=== PATIENT | female | born 1935 | race Caucasian/White ===

== ENCOUNTER 2019-07-18 20:35 | Inpatient (IN) | payer MEDICARE ==
[~2019-07-18] VITALS: Ht 162.6 cm; Wt 55.5 kg
[2019-07-18 22:36] VITALS: BP 158/92
[2019-07-18] MEDS ORDERED: NS 1,000 ML IV SCH (23:18)
--- NOTE | 2019-07-18 23:33 | HPEPDOC ---
[facility] Medical History & Physical Date of Admission Jul 18, 2019 Date of Service: Jul 18, 2019 Attending Physician: RIKKI OATES MD History and Physical CHIEF COMPLAINT: Fall, left upper extremity paralysis HISTORY OF PRESENT ILLNESS: Patient is an 83-year-old female who presents to [facility] as a direct transfer from [facility]. Patient was brought to the hospital after falling at home approximately at 2 AM on 07/18/2019. Patient was apparently found about 4 hours later by family members who brought her to the emergency department. In the emergency department, patient was found to have rhabdomyolysis and possible CVA as the patient had left upper extremity paralysis as well as difficulty with speech. Patient recently had an MRI of her brain per formed by her neurologist, Dr. Aguillon which showed micro-bleeds in her brain. Patient has a history of atrial fibrillation which she was anticoagulated with warfarin however, after the MRI, warfarin was stopped. Patient is unclear on her history and is very tired while trying to ask questions however, she does not complain of any pain in her chest or abdomen. Patient denied any difficulty breathing. Patient's only complaint was left arm pain. Patient fell on the concrete floor and landed on her left arm. REVIEW OF SYSTEMS: General: Patient denies fevers HEENT: Patient denies headaches Cardiovascular: Patient denies chest pain Respiratory: Patient denies shortness of breath, cough GI: Patient denies abdominal pain, nausea, vomiting, diarrhea : Patient denies pain or difficulty with urination Neurological: Patient denies numbness or tingling in extremities Extremities: Patient endorses pain in her left upper extremity PAST MEDICAL HISTORY: 1. Congestive heart failure. 2. Hypertension. 3. Atrial fibrillation 4. Chronic migraine 5. Mild dementia 6. Gilbert's disease 7. Chronic back pain 8. History of left bundle branch block PAST SURGICAL HISTORY: Difficult to obtain but patient may have had appendectomy in the past. SOCIAL HISTORY: Patient denies smoking or alcohol use. According to the records, patient lives alone. FAMILY HISTORY: Difficult to obtain however, patient denies any relevant family history ALLERGIES: Please see below. HOME MEDICATIONS: Please see below. PHYSICAL EXAMINATION: VITAL SIGNS: Temperature 97.3, pulse 104, respiratory rate 18, blood pressure 119/82, pulse oximetry 93% on room air. General: Patient was sleeping when I walked in however, upon talking to her she will wake up and would minimally answer questions. She was able to tell me her full name and she was at the hospital. She was able to tolerate the year as well. Throughout the examination, patient would answer yes or no questions and very minimally expand upon answers. Patient does not appear to be in any acute distress. HEENT: Normocephalic, atraumatic, moist mucous membranes, posterior pharynx was nonerythematous, tympanic membranes are pearly-curtis without erythema. Neck: No lymphadenopathy, thyromegaly, or carotid bruits. Cardiac: Irregularly irregular rhythm with a normal rate, no murmurs, normal S1, normal S2 Pulm: Clear to auscultation bilaterally. No wheezes, rhonchi, rales Abd: Nondistended, nontender to palpation, normal bowel sounds Ext: Patient had redness and swelling over her left shoulder, left elbow, and left wrist. Patient also had a small skin tear over the left lobe. Neuro: Patient was guarding her left upper extremity however, she was able to very gingerly move it. When I asked her to squeeze my fingers, she did not squeeze with her hand. Patient did not appear to have any facial droop. Patient's speech sounded garbled on examination. Skin: Skin of the arms, lower legs, abdomen, back, head and neck were examined did not show any evidence of rash or lesions. LABORATORY DATA: See below. IMAGING: A chest x-ray was performed at the hospital she was transferred from and was reported to be negative. MRI of the brain, carotid ultrasound, and x- rays of the left upper extremity are pending. MICROBIOLOGY: Please see below. ASSESSMENT: Patient is an 83-year-old female who presented to the hospital with confusion and possible left upper extremity paralysis with garbled speech after a fall. Patient was transferred to [facility] for neurological care. PLAN: 1. Possible cerebrovascular accident. Patient had an MRI in the past which showed micro-bleeds which is why her warfarin was stopped. Patient is currently in atrial fibrillation. Patient seen to be able to move her left upper extremity however, it seems to be painful for her as this which she fell on when she fell at home. MRI of the brain has been ordered. Neurology will be consulted. Patient is currently nothing by mouth pending swallow evaluation. 2. Rhabdomyolysis. Patient was found down and an elevated creatinine kinase. Patient will be started on IV fluids and we'll continue to monitor. 3. Fall with injury to the left upper extremity. Patient has a skin tear over the left elbow and redness and swelling over the left shoulder. X-rays have been ordered and are pending. 4. Atrial fibrillation. Patient is currently not anticoagulated secondary to micro-bleeds are found on MRI performed in April. We will monitor the patient's heart rate with telemetry. 5. DVT prophylaxis: Teds and sequentials. 6. CODE STATUS: Full code Disposition. Patient will be admitted to the progressive care unit on telemetry for further monitoring. Neurology will be consulted and we expect a greater than 2 midnights today. Home Medications Scheduled Carvedilol (Carvedilol) 6.25 Mg Tablet, 6.25 MG PO BID Cyanocobalamin (Vitamin B-12) (B-12) 500 Mcg Tablet, 500 MCG PO DAILY Digoxin (Digoxin) 125 Mcg Tablet, 125 MCG PO 5XW WEDNESDAY, WEDNESDAY, WEDNESDAY, WEDNESDAY AND WEDNESDAY Duloxetine Hcl (Duloxetine HCl) 20 Mg Capsule.dr, 20 MG PO DAILY Furosemide (Furosemide) 20 Mg Tablet, 20 MG PO Q2D Losartan Potassium (Losartan Potassium) 50 Mg Tablet, 50 MG PO BID Multivitamins (Thera M Plus Tablet) 1 Each Tablet, 1 TAB PO DAILY Potassium Chloride (Potassium Chloride) 10 Meq Tab.er.prt, 10 MEQ PO DAILY Psyllium Husk (Metamucil) 0.52 Gm Capsule, 0.52 GM PO DAILY Topiramate (Topiramate) 50 Mg Tablet, 50 MG PO BID Miscellaneous Medications [Med Rec Comment] OBTAINED MED LIST FROM [facility] AND [facility] Allergies Coded Allergies: No Known Allergies (Verified Allergy, Unknown, 07/19/19) A-FIB/CHADSVASC A-FIB History Current/History of A-Fib/PAF?: Yes Current PO Anticoag Therapy: No Treatment Reason Anticoagulant not given: Other Other reason anticoagulant not: micro-bleeds found on MRI in April 2019 with frequent falls. GME ATTESTATION GME ATTESTATION My faculty preceptor for this patient encounter was physically present during the encounter and was fully available. All aspects of the patient interview, examination, medical decision making process, and medical care plan development were reviewed and approved by the faculty preceptor. The faculty preceptor is aware and concurs with the plan as stated in the body of this note and will attest to such by his/her cosignature. ATTENDING NOTE Time of service 11:30 PM is an 83-year-old female the a PMH of CHF, atrial fibrillation, HTN, migraines, dementia, and LBBB who is admitted for evaluation of left upper extremity weakness, possibly due to CVA and rhabdomyolysis after a fall. - telemetry, PT/OT/SPL, f/u on MRI, Carotid US, lipids, A1C and with Neuro Rest per Dr. Lara's note. I reviewed and edited the note and agree with the findings as documented Late entry Blood work July 18: WBC 6.3, hemoglobin 11.8, platelets 159, sodium 147, potassium 3.8, chloride 115, bicarbonate 22, BUN 20, creatinine 1.19, glucose 87, CPK 2064. SHIELA LARA DO Jul 18, 2019 23:33 RIKKI OATES MD Jul 19, 2019 03:48
[2019-07-19] VITALS: BP 131/90
[2019-07-19] MEDS ORDERED: POTA10TA67 PO (00:15)
[2019-07-19] MEDS ORDERED: VITMTA PO (00:15)
[2019-07-19] MEDS ORDERED: LOSA50TA88 PO (00:15)
[2019-07-19] MEDS ORDERED: TOPI50TA9 PO (00:15)
[2019-07-19] MEDS ORDERED: DULO1CAP4 PO (00:15)
[2019-07-19] MEDS ORDERED: META0.522 PO (00:15)
[2019-07-19] MEDS ORDERED: CARV6.25 PO (00:15)
[2019-07-19] MEDS ORDERED: DIGO0.123 PO (00:15)
[2019-07-19] MEDS ORDERED: FURO20TA2 PO (00:15)
[2019-07-19] MEDS ORDERED: TRAM50TA2 PO (00:15)
[2019-07-19 04:00] VITALS: BP 119/82
[2019-07-19 04:18] LABS: HEMATOCRIT 35.5 % (36.0-47.0); HEMOGLOBIN 11.8 g/dl (12.0-15.5); MEAN CORPUSCULAR HEMOGLOBIN 34.6 pg (27.0-33.0); MEAN CORPUSCULAR HGB CONC 33.2 g/dl (32.0-36.5); MEAN CORPUSCULAR VOLUME 104.1 fl (80.0-96.0); PLATELET COUNT, AUTOMATED 159 10^3/uL (150-450); RED BLOOD COUNT 3.41 10^6/uL (4.00-5.40); WHITE BLOOD COUNT 6.3 10^3/uL (4.0-10.0)
[2019-07-19 04:55] LABS: HEMOGLOBIN A1c 5.2 %
[2019-07-19 05:09] LABS: ALBUMIN 3.1 GM/DL (3.2-5.2); BILIRUBIN,TOTAL 3.2 MG/DL (0.2-1.0); CALCIUM LEVEL 8.2 MG/DL (8.8-10.2); CHOLESTEROL RISK RATIO 1.475 (<5); CREATININE FOR GFR 1.19 MG/DL (0.55-1.30); GLOMERULAR FILTRATION RATE 46.1 (>32); MAGNESIUM LEVEL 1.8 MG/DL (1.8-2.4); POTASSIUM SERUM 3.8 MEQ/L (3.5-5.1); THYROID STIMULATING HORMONE 3.53 uIU/ML (0.358-3.740); TOTAL PROTEIN 6.2 GM/DL (6.4-8.2)
[2019-07-19 08:00] VITALS: BP 149/96
[2019-07-19] MEDS ORDERED: DIGOXIN 0.125 MG TAB PO SCH (09:00)
[2019-07-19] MEDS ORDERED: ENOXAPARIN 40 MG/0.4 ML SYRINGE (J1650) SC SCH (09:00)
--- NOTE | 2019-07-19 09:18 | REP ---
Duplex carotid sonography: History: Possible CVA. Findings: Antegrade flow was observed in both vertebral arteries. Right carotid: The right common carotid artery is unremarkable. Relatively slow Doppler velocities are observed bilaterally throughout the carotids. There is mild mixed plaquing in the right carotid bulb and proximal ICA. No significant stenosis is seen. No elevated systolic velocities are observed. Velocity chart right carotid: PSV EDV Right CCA 50.0 cm/s Right ICA 35.0 15.0 Right ECA 41.0 Right ICA/CCA ratio normal 0.7. Impression: Less than 50% category narrowing in the right ICA by Doppler. Left carotid: Left common carotid artery is unremarkable. There is mild mixed plaquing in the bulb and proximal ICA. Color flow and spectral Doppler interrogation show no evidence of significant stenosis. Velocity chart left carotid: PSV EDV Left CCA 70.0 cm/s Left ICA 34.0 10.0 Left ECA 32.0 Left ICA/CCA ratio normal 0.5. Impression: Less than 50% category narrowing in the left ICA. Electronically Signed by Jorge Elizondo MD 07/19/2019 02:02 P
--- NOTE | 2019-07-19 10:03 | REP ---
LEFT SHOULDER: Three views of the left shoulder are performed. There appears to be an old healed fracture of the proximal humerus in the region of the head and neck. No definite acute fracture is seen. There is no dislocation. Electronically Signed by Emerson Castillo MD 07/19/2019 03:55 P
--- NOTE | 2019-07-19 10:04 | REP ---
LEFT HUMERUS: Two views of the left humerus performed. There is an old healed fracture of the left humerus proximally. No acute fracture or dislocation is seen. No intrinsic osseous pathology is seen. Electronically Signed by Emerson Castillo MD 07/19/2019 03:55 P
--- NOTE | 2019-07-19 10:05 | REP ---
LEFT ELBOW, FOUR VIEWS: Four views of the left elbow are performed. There is no evidence of acute fracture, dislocation, or intrinsic bone disease. Electronically Signed by Emerson Castillo MD 07/19/2019 03:55 P
--- NOTE | 2019-07-19 10:09 | REP ---
LEFT WRIST, TWO VIEWS: Two views of the left wrist are performed. No acute fracture or dislocation is seen. There is metallic internal fixation in the distal radius with an old healed fracture at that location. There also appears to be an old healed fracture of the distal end of the ulna. Moderate joint space narrowing and subchondral sclerosis is noted at the joint between the scaphoid and trapezium as well as between the trapezium and base of first metacarpal. Electronically Signed by Emerson Castillo MD 07/19/2019 03:56 P
[2019-07-19] MEDS ORDERED: B-121TAB3 PO (10:36)
[2019-07-19] MEDS ORDERED: MED REC COMMENT (10:36)
[2019-07-19] MEDS: CYANOCOBALAMIN 500 MCG TAB PO SCH (11:49)
[2019-07-19] MEDS: LOSARTAN 50 MG TAB PO SCH ×2 (11:49→21:25)
[2019-07-19] MEDS: CARVedilol 6.25 MG TAB PO SCH ×2 (11:50→21:26)
[2019-07-19] MEDS: DIGOXIN 0.125 MG TAB PO SCH (11:50)
--- NOTE | 2019-07-19 11:57 | IPN ---
DATE: 07/19/2019 Luisa was transferred from [facility] with suspected stroke. She was found on the floor. She was lying on her left side. Her left side is weak but it is difficult to determine if this is paresis from a neurapraxia or pain from her fall or whether it is a related to a stroke (see below). She has a history of stroke and has had microscopic hemorrhage in the past. She had a swallowing study this morning, then hold her consistency diet be recommended. She has rhabdomyolysis. I do not have her baseline creatinine kinase (CK) from [facility] but it is elevated here. She is not currently on any intravenous (IV) fluids. PHYSICAL EXAMINATION: 149/96, pulse of 117, respiratory rate 20, 99% oxygen saturation on 4 liters. General Appearance: She answers questions and follows command. She is dysarthric and mucous membranes are quite dry. No jugular venous distention (JVD). No carotid bruits. Lungs: Clear. Heart: Regular rate and rhythm. 1/6 systolic ejection murmur. Abdomen: Soft, nontender. No masses. She moves her legs with equal strength. There is no facial droop or weakness. Left upper extremity is weak, but she indicates she has pain in elbow and shoulder when she tries to lift this. Computer Systems Architect strength is equal bilaterally. She has an abrasion over the left shoulder. LABORATORY DATA: White count 6.3, hemoglobin 11.8, and platelets 159. MCV is elevated at 104. Sodium 147, potassium 3.8, BUN 20, creatinine 1.9, glucose 87. Bilirubin 3.9. CK 2064. IMPRESSION: 1. Left-sided weakness. I am not sure if this a neurapraxia, musculoskeletal, or stroke. She has MRI of the brain pending. She is not anticoagulant, antiplatelet or deep venous thrombosis (DVT) prophylaxis until that comes back. Neurology has been consulted. Carotid ultrasound was normal. Echocardiogram is pending. 2. Rhabdomyolysis. Not currently on any IV fluids although 100 mL/h of normal saline was ordered. She is hypernatremic, so will change this to half normal saline with some supplemental potassium. Daily labs have been ordered. 3. Prerenal azotemia. IV fluids have been ordered. 4. Macrocytic anemia. B12, folate, free kappa lambda light chains have been ordered. Thyroid-stimulating hormone (TSH) was normal. We will get a free T4 as well. 5. Atrial fibrillation. Rate is elevated. She is not currently on any of her chronotropic medications. I think these were held until she had her swallowing study. We will restart these with her carvedilol 6.25 mg twice a day, digoxin 0.125 mg five times a week. She is on an anticoagulant as an outpatient due to history of macroscopic hemorrhage from stroke. 6. Hypertensive heart disease. Restarting her carvedilol. Restart losartan. 7. She is Topamax as an outpatient. I am not sure what the indication is. We do not have those records, but we will continue this. I met with the family, and we discussed the case at length and all questions were answered.
[2019-07-19 12:00] VITALS: BP 128/60
[2019-07-19] MEDS: DULoxetine 20 MG CAP (CYMBALTA) PO SCH (12:25)
[2019-07-19] MEDS: TOPIRAMATE (TopAMAX) 25 MG TAB PO SCH ×2 (12:25→21:26)
[2019-07-19] MEDS: KCL 20MEQ IN 0.45NS 1000ML 1,000 ML IV SCH ×2 (12:27→21:45)
[2019-07-19 16:00] VITALS: BP 142/100
[2019-07-19 20:00] VITALS: BP 136/92
--- NOTE | 2019-07-19 21:36 | ECHO ---
DATE OF PROCEDURE: 07/19/2019 REFERRING PHYSICIAN: Mk Olsen MD INDICATION: Acute stroke. HEIGHT: 64 inches WEIGHT: 47.4 kg 2D MEASUREMENTS: Aortic root: 3.7 cm Aortic annulus: 2.3 cm Left atrium: 6.1 cm Left atrial volume index: 114 Ventricular septum: 1.23 cm Posterior wall: 1.20 cm Left ventricle diastole: 4.1 cm Inferior vena cava: 1.5 cm (more than 50% respiratory variation). DOPPLER MEASUREMENTS: Mild aortic regurgitation. No aortic stenosis. Aortic valve velocity: 103 cm/s LVOT velocity: 63.2 cm/s Moderate mitral regurgitation. No mitral stenosis. Mitral E velocity: (CW 121 cm/s) Mean aortic valve gradient: 2 mmHg Moderate tricuspid regurgitation. Estimated right ventricle systolic pressure: 42 mmHg assuming a right atrial pressure of 10 mmHg. Mild pulmonic regurgitation. DESCRIPTION: Rhythm was atrial fibrillation with controlled ventricular response. Image quality was fair. No pericardial effusion. This is a 2D, M-mode, color flow Doppler and pulse wave Doppler examination that included mitral annular tissue Doppler. CONCLUSIONS: 1. Borderline concentric left ventricle hypertrophy. Normal regional left ventricle (LV) wall motion and wall thickening. Normal LV systolic function. Left ventricular ejection fraction (LVEF) 60% by visual estimate. 2. Severe left atrial dilatation. 3. Severe mitral annular calcification. Moderate mitral regurgitation. No mitral stenosis. 4. Moderate aortic valve sclerosis of a three-cuspid aortic valve. Mild aortic regurgitation. No aortic stenosis. 5. Suggestive of moderate elevation of estimated right ventricle systolic pressure. Normal right ventricle size and systolic function. At least mild right atrial dilatation by visual estimate. Structurally normal appearing tricuspid leaflets with moderate tricuspid regurgitation.
[2019-07-20] VITALS: BP 139/86
[2019-07-20] MEDS: KCL 20MEQ IN 0.45NS 1000ML 1,000 ML IV SCH ×4 (00:10→22:30)
[2019-07-20 04:00] VITALS: BP 141/101
--- NOTE | 2019-07-20 07:57 | CR ---
DATE OF CONSULTATION: 07/19/2019 REFERRING PHYSICIAN: Dr. Brenda Burroughs REASON FOR CONSULTATION: Fall, left-sided weakness, and gaze deviation. HISTORY OF PRESENT ILLNESS: Luisa Orr is a 83-year-old woman who was transferred from [facility] on July 18, 2019. I was contacted by our answering service in the evening and when I called [facility] nobody picked up on both extensions. Nursing supervisor paint roller covers from [facility] called me a few minutes later and said that Dr. Castillo from emergency department had spoken with a physician from [facility] and will be wanted to transfer Luisa Orr to [facility] due to possible stroke. According to nursing supervisor paint roller covers the patient was found down after 24 hours. She had rhabdomyolysis and mild renal failure with creatinine around 1.3. The patient used to be on Coumadin for atrial fibrillation but it was stopped due to her frequent falls, risk of bleeding and the patient was also found to have amyloid angiopathy with micro bleeds in her brain in April 2019. The patient herself seems to have dysarthria currently and is unable to provide any meaningful history. She can follow simple one-step commands. She does not open her eyes. She talks with dysarthria and eyes closed. She appears to have pain in her left upper extremity. She fell on concrete floor and landed on her left arm. PAST MEDICAL HISTORY: Congestive heart failure, hypertension, atrial fibrillation, migraines, dementia, Gilbert's disease, chronic back pain, left bundle branch block. PAST SURGICAL HISTORY: Appendectomy. SOCIAL HISTORY: She denies smoking, alcohol or illicit drugs. FAMILY HISTORY: Noncontributory. REVIEW OF SYSTEMS: All systems were reviewed with the patient and were found to be noncontributory except as mentioned in history of present illness. HOME MEDICATIONS: - carvedilol 6.25 mg by mouth twice a day - digoxin 125 mcg by mouth daily - Cymbalta 20 mg by mouth daily - Lasix 20 mg by mouth every 2 days - losartan 50 mg by mouth twice a day - potassium chloride 10 mEq by mouth daily - Topamax 50 mg by mouth twice a day - tramadol 50 mg by mouth every 5 hours as needed ALLERGIES: None. PHYSICAL EXAMINATION: Temperature 98.5, pulse 67, respiratory 20, blood pressure 142/100, heart irregularly irregular. Lungs: Clear to auscultation. Abdomen: Soft, nontender, nondistended. No pedal edema. No rash. The patient appears to have pain in her left upper arm and elbow. She has tenderness and pain on passive range of motion of left arm. She has bruises on her left arm. The patient is a drowsy and keeps eyes closed. She is able to follow only simple one-step commands. She has dysarthria of speech. She is able to move all four extremities and moans with movement of her left arm. Movement in the left arm seems less than right side. Movement of her left foot and toes appear equal to right side. Detailed motor examination could not be performed. She has withdrawal response to plantar testing of both feet. Gait could not be tested. Sensory examination could not be performed appropriately. DIAGNOSTIC STUDIES: Her MRI scan of brain in April 2019 showed amyloid angiopathy with multiple micro bleeds on GREC sequence of MRI scan of brain. Carotid ultrasound showed less than 50% bilateral internal carotid artery stenosis. ASSESSMENT: 1. Possible ischemic stroke causing fall and left hemiparesis. 2. Mechanical fall with left arm injury and also in differential diagnosis. 3. Amyloid angiopathy. 4. Atrial fibrillation and her Coumadin was stopped due to multiple falls and amyloid angiopathy. 5. Less than 50% bilateral carotid artery stenosis. PLAN: 1. MRI brain and MRA brain. 2. Continue telemetry monitoring. 3. Physical and occupational therapy. 4. Aspirin 81 mg by mouth daily. 5. With amyloid angiopathy and her frequent falls the patient is likely not a candidate for anticoagulation.
[2019-07-20 08:00] VITALS: BP 155/111
[2019-07-20] MEDS: LOSARTAN 50 MG TAB PO SCH ×2 (08:17→20:22)
[2019-07-20] MEDS: CYANOCOBALAMIN 500 MCG TAB PO SCH (08:17)
[2019-07-20] MEDS: DULoxetine 20 MG CAP (CYMBALTA) PO SCH (08:17)
[2019-07-20] MEDS: CARVedilol 6.25 MG TAB PO SCH ×2 (08:18→20:23)
[2019-07-20] MEDS: TOPIRAMATE (TopAMAX) 25 MG TAB PO SCH ×2 (08:20→20:21)
[2019-07-20 10:50] LABS: HEMATOCRIT 37.4 % (36.0-47.0); HEMOGLOBIN 12.1 g/dl (12.0-15.5); MEAN CORPUSCULAR HEMOGLOBIN 34.1 pg (27.0-33.0); MEAN CORPUSCULAR HGB CONC 32.4 g/dl (32.0-36.5); MEAN CORPUSCULAR VOLUME 105.4 fl (80.0-96.0); PLATELET COUNT, AUTOMATED 146 10^3/uL (150-450); RED BLOOD COUNT 3.55 10^6/uL (4.00-5.40); WHITE BLOOD COUNT 6.6 10^3/uL (4.0-10.0)
[2019-07-20] MEDS: amLODIPine 5 MG TAB PO SCH (10:53)
--- NOTE | 2019-07-20 10:56 | IPN ---
DATE: 07/20/2019 Luisa is seen in PCU. MRI has not been done yet, so we are essentially at the same point we were yesterday. It was ordered 24 hours ago and has not been completed. Clinical status is unchanged. PHYSICAL EXAMINATION: 155/111, pulse of 52. General Appearance: She is lying in bed. She is uncomfortable when she moves her left arm. She has an abrasion over the let shoulder and some bruising present. Lungs: Clear. Heart: Regular rate and rhythm. Abdomen: Soft, nontender. No peripheral edema. She has trouble moving her left arm and attributes this to pain. IMAGING: MRI is still pending. Carotid ultrasound showed less than 50% stenosis bilaterally. LABORATORY DATA: Morning labs are pending. IMPRESSION: 1. Mechanical fall with left sided weakness. I am not sure if this related to musculoskeletal pain or stroke. MRI is still pending. Neurology has been consulted. They recommend against anticoagulation due to the amyloid microangiopathy. 2. Rhabdomyolysis. Followup labs are pending. Currently on IV fluids. 3. Prerenal azotemia. Follow up labs are pending. 4. Atrial fibrillation. Rate and blood pressure are both elevated. Some of this elevated blood pressure could be related to the pain that she was experiencing which was witnessed during the exam. Heart rate varies between 52 and 111, so I am hesitant to increase the dose of her carvedilol. Will start amlodipine 5 mg with a dose now for better control of her blood pressure. 5. Left shoulder/elbow contusions. No fracture on x-ray. Local care being provided.
[2019-07-20 11:29] LABS: ALBUMIN 2.9 GM/DL (3.2-5.2); BILIRUBIN,TOTAL 2.1 MG/DL (0.2-1.0); CALCIUM LEVEL 7.7 MG/DL (8.8-10.2); CREATININE FOR GFR 1.19 MG/DL (0.55-1.30); GLOMERULAR FILTRATION RATE 46.1 (>32); POTASSIUM SERUM 4.4 MEQ/L (3.5-5.1); TOTAL PROTEIN 5.7 GM/DL (6.4-8.2)
[2019-07-20 11:45] VITALS: BP 128/98
[2019-07-20 16:55] VITALS: BP 142/92
--- NOTE | 2019-07-20 18:16 | REPVR ---
PROCEDURE INFORMATION: Exam: MR Head Without Contrast Exam date and time: 07/20/2019 5:39 PM Age: 83 years old Clinical indication: Altered mental status/memory loss; Confusion or disorientation; Patient HX: Confusion possible CVA TECHNIQUE: Imaging protocol: MR of the head without contrast. COMPARISON: No relevant prior studies available. FINDINGS: Limitations: The study is moderately limited due to patient motion artifact. Brain: There are multiple areas of restricted diffusion within the right temporal lobe, inferolateral right basal ganglia, anterior right insula, right frontal lobe, right quispe radiata, and right centrum semiovale. Corresponding decreased signal on the ADC map and increased T2 signal is present. The findings are consistent with acute to subacute infarcts. There is no acute intracranial hemorrhage or midline shift. Age-related cerebral and cerebellar substance loss is present. Scattered increased T2 and FLAIR signal within the periventricular and subcortical white matter is present. This is nonspecific but likely related to chronic microangiopathic ischemic change. Ventricles: Mild ex vacuo dilation of the lateral ventricles is noted. Bones/joints: Unremarkable. Soft tissues: Unremarkable. Sinuses: Normal as visualized. No acute sinusitis. Mastoid air cells: Normal as visualized. No mastoid effusion. Orbits: Unremarkable. IMPRESSION: 1. Acute/subacute right cerebral infarcts as discussed above 2. Chronic findings as discussed above. Electronically signed by: Booker Anne On 07/20/2019 18:16:29 PM
[2019-07-20 20:00] VITALS: BP 122/75
[2019-07-20] MEDS: ASPIRIN 81 MG ENTERIC TAB PO SCH (20:21)
[2019-07-21] VITALS: BP 128/87
[2019-07-21 04:00] VITALS: BP 130/72
[2019-07-21 05:51] LABS: HEMATOCRIT 30.8 % (36.0-47.0); MEAN CORPUSCULAR HGB CONC 32.8 g/dl (32.0-36.5); MEAN CORPUSCULAR VOLUME 103.7 fl (80.0-96.0); PLATELET COUNT, AUTOMATED 141 10^3/uL (150-450); RED BLOOD COUNT 2.97 10^6/uL (4.00-5.40); WHITE BLOOD COUNT 5.1 10^3/uL (4.0-10.0)
[2019-07-21 05:56] LABS: HEMOGLOBIN 10.1 g/dl (12.0-15.5)
[2019-07-21 06:33] LABS: BLOOD UREA NITROGEN 18 MG/DL (7-18); CALCIUM LEVEL 6.4 MG/DL (8.8-10.2); CARBON DIOXIDE LEVEL 14 MEQ/L (21-32); CHLORIDE LEVEL 110 MEQ/L (98-107); CPK CREATINE PHOSPHOKINASE 931 U/L (26-192); CREATININE FOR GFR 0.89 MG/DL (0.55-1.30); GLOMERULAR FILTRATION RATE > 60.0 (>32); GLUCOSE, FASTING 79 MG/DL (70-100); POTASSIUM SERUM 7.3 MEQ/L (3.5-5.1); SODIUM LEVEL 131 MEQ/L (136-145)
[2019-07-21 07:27] LABS: CALCIUM LEVEL 7.9 MG/DL (8.8-10.2); CREATININE FOR GFR 1.08 MG/DL (0.55-1.30); GLOMERULAR FILTRATION RATE 51.6 (>32); POTASSIUM SERUM 4.5 MEQ/L (3.5-5.1)
[2019-07-21 08:00] VITALS: BP 165/96
[2019-07-21] MEDS: DULoxetine 20 MG CAP (CYMBALTA) PO SCH (08:34)
[2019-07-21] MEDS: CARVedilol 6.25 MG TAB PO SCH ×2 (08:34→20:51)
[2019-07-21] MEDS: DIGOXIN 0.125 MG TAB PO SCH (08:34)
[2019-07-21] MEDS: TOPIRAMATE (TopAMAX) 25 MG TAB PO SCH ×2 (08:35→20:50)
[2019-07-21] MEDS: CYANOCOBALAMIN 500 MCG TAB PO SCH (08:35)
[2019-07-21] MEDS: amLODIPine 5 MG TAB PO SCH (08:35)
[2019-07-21] MEDS: LOSARTAN 50 MG TAB PO SCH ×2 (08:35→20:51)
[2019-07-21] MEDS ORDERED: SLF 3 ML SYR IV PRN (10:00)
[2019-07-21 11:52] VITALS: BP 138/79
[2019-07-21] MEDS: SLF 3 ML SYR IV SCH ×2 (11:57→20:52)
--- NOTE | 2019-07-21 13:08 | IPN ---
DATE: 07/21/2019 Luisa's MRI scan was finally done and it confirmed that she did have a stroke in the right hemisphere, within the right temporal lobe, inferolateral right basal ganglia, anterior right insula, right frontal lobe, right quispe radiata, right centrum semiovale. She has no acute intracranial hemorrhage. Therefore, her left sided weakness is both neurologic and musculoskeletal -- stroke and arm injury from fall. She is receiving physical therapy (PT), they are trying to get her more out of bed. 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 PHYSICAL EXAMINATION: 165/96, pulse 100, respiratory rate 14, 94% oxygen saturation. GENERAL APPEARANCE: Elderly, frail, lying in bed, holding her left arm to her side. She has a contusion over the left shoulder with some ecchymosis. Pain with range of motion. LUNGS: Clear. HEART: Regular rate and rhythm. ABDOMEN: Soft, nontender. EXTREMITIES: No peripheral edema. NEUROLOGIC: No facial droop or weakness. LABORATORIES: Sodium 137, potassium 4.5, initial potassium was 7.3, suspected lab error as repeat potassium was 4.5, BUN 20, creatinine 1.0, glucose 104. White count 5.1, hemoglobin 10.1, platelets 141. IMPRESSION: 1. Stroke with left sided weakness. Not a candidate for anticoagulation. Continue current treatment. Continue physical therapy (PT). 2. Rhabdomyolysis. CK is falling. We will stop the intravenous fluids. 3. Prerenal azotemia. It is resolved with hydration. 4. Atrial fibrillation. Rate is controlled. Not anticoagulated per neurology. 5. Hypertension. Blood pressure is mildly elevated intermittently. Average blood pressures are within adequate range so we will continue her current regimen. 6. B12 deficiency. Continue B12 500 mcg daily.
--- NOTE | 2019-07-21 15:05 | ECGEPIP ---
[facility] Test Date: 2019-07-21 Pat Name: FRITZ LAINEZ Department: Room: U9588-38 Gender: Female Manual Lathe Operator: MONIKA : 1935 Requested By: SHIELA ANDREWS Order Number: [id number] Reading MD: Adam Chappell Measurements Intervals [place] Rate: 115 P: NE: 0 QRS: 108 QRSD: 144 T: -55 QT: 363 QTc: 502 Interpretive Statements ATRIAL FIBRILLATION WITH RAPID VENTRICULAR RESPONSE Left bundle branch block Prolonged QTc interval Comparison tracing not on file Electronically Signed on 07-21-2019 15:05:03 EST by Adam Chappell
[2019-07-21 15:31] VITALS: BP 120/78
[2019-07-21 20:44] VITALS: BP 137/87
[2019-07-21] MEDS: ASPIRIN 81 MG ENTERIC TAB PO SCH (20:51)
[2019-07-22] MEDS ORDERED: ACETAMINOPHEN TAB 650MG DOSE (2X325MG) PO PRN (00:45)
[2019-07-22 05:04] VITALS: BP 142/80
[2019-07-22] MEDS: SLF 3 ML SYR IV SCH ×3 (05:05→21:05)
[2019-07-22 06:50] LABS: HEMATOCRIT 36.1 % (36.0-47.0); MEAN CORPUSCULAR HEMOGLOBIN 34.2 pg (27.0-33.0); MEAN CORPUSCULAR HGB CONC 33.2 g/dl (32.0-36.5); MEAN CORPUSCULAR VOLUME 102.8 fl (80.0-96.0); PLATELET COUNT, AUTOMATED 163 10^3/uL (150-450); RED BLOOD COUNT 3.51 10^6/uL (4.00-5.40); WHITE BLOOD COUNT 5.1 10^3/uL (4.0-10.0)
[2019-07-22 07:09] LABS: CALCIUM LEVEL 8.1 MG/DL (8.8-10.2); CREATININE FOR GFR 1.05 MG/DL (0.55-1.30); GLOMERULAR FILTRATION RATE 53.3 (>32); POTASSIUM SERUM 4.1 MEQ/L (3.5-5.1)
[2019-07-22] MEDS: TOPIRAMATE (TopAMAX) 25 MG TAB PO SCH ×2 (08:36→21:12)
[2019-07-22] MEDS: DULoxetine 20 MG CAP (CYMBALTA) PO SCH (08:36)
[2019-07-22] MEDS: CARVedilol 6.25 MG TAB PO SCH ×2 (08:36→21:11)
[2019-07-22] MEDS: DIGOXIN 0.125 MG TAB PO SCH (08:36)
[2019-07-22] MEDS: LOSARTAN 50 MG TAB PO SCH ×2 (08:36→21:12)
[2019-07-22] MEDS: CYANOCOBALAMIN 500 MCG TAB PO SCH (08:37)
[2019-07-22] MEDS: amLODIPine 5 MG TAB PO SCH (08:37)
[2019-07-22 21:12] VITALS: BP 126/74
[2019-07-22] MEDS: ASPIRIN 81 MG ENTERIC TAB PO SCH (21:12)
[2019-07-23 06:00] VITALS: BP 162/96
[2019-07-23] MEDS: TOPIRAMATE (TopAMAX) 25 MG TAB PO SCH ×2 (08:41→20:46)
[2019-07-23] MEDS: DULoxetine 20 MG CAP (CYMBALTA) PO SCH (08:41)
[2019-07-23] MEDS: CYANOCOBALAMIN 500 MCG TAB PO SCH (08:41)
[2019-07-23] MEDS: CARVedilol 6.25 MG TAB PO SCH ×2 (08:42→20:46)
[2019-07-23] MEDS ORDERED: ASPI81TAEC PO (08:42)
[2019-07-23] MEDS: LOSARTAN 50 MG TAB PO SCH ×2 (08:42→20:46)
[2019-07-23] MEDS: DIGOXIN 0.125 MG TAB PO SCH (08:42)
[2019-07-23] MEDS ORDERED: AMLO10TA5 PO (08:42)
[2019-07-23] MEDS: amLODIPine 10 MG TAB PO SCH (08:42)
[2019-07-23] MEDS: ASPIRIN 81 MG ENTERIC TAB PO SCH (20:46)
--- NOTE | 2019-07-23 21:33 | IPN ---
DATE: 07/22/2019 Luisa is seen on [address], now apparently going to [facility] on Wednesday. No change in status. She is intermittently very sleepy, but does wake to eat and follows commands. PHYSICAL EXAMINATION: Blood pressure range is from 137/87 to 165/98, average blood pressures are acceptable, heart rate is 76 to 100. She is elderly, frail, lying in bed, not moving her left arm. LUNGS: Clear. HEART: Regular rhythm. ABDOMEN: Soft, nontender. No peripheral edema. IMPRESSION: 1. Stroke, left-sided weakness, confirmed by MRI scan. Continue her recurring antiplatelet therapy. [place] not to be a good candidate for anticoagulation for reasons previously summarized. 2. Rhabdomyolysis. Stop the intravenous (IV) fluids. Problem is now resolved. 3. Prerenal azotemia. This is resolved. 4. Atrial fibrillation. Rate is controlled. 5. Hypertension. Average blood pressures are acceptable. She is longterm facility (SNF) level of care. PLAN: [facility] on 07/24/2019.
--- NOTE | 2019-07-23 21:36 | DSES ---
DATE OF ADMISSION: 07/18/2019 PENDING DATE OF DISCHARGE: FIRST DIAGNOSIS: Stroke, right cerebrum with left upper extremity weakness. SECONDARY DIAGNOSES: 1. Rhabdomyolysis. 2. Prerenal azotemia. 3. Macrocytic anemia. 4. Atrial fibrillation - not a candidate for anticoagulation. 5. Hypertensive heart disease. 6. Amyloid angiopathy that precludes anticoagulation. HISTORY: Patient was transferred from [facility] with left-sided weakness. She was found on the floor, could not move her left side, did not know if it was musculoskeletal or from stroke. Details of the history and physical as per admission. HOSPITAL COURSE: Patient was admitted to a medical bed. There was delay in getting her MRI scan. Ultimately it showed she did have a stroke in the right cerebrum affecting the left upper extremity. She also had rhabdomyolysis from the fall and contusions were on the left shoulder and left elbow that interfered with her moving, as well. X-rays were negative for fracture. She received physical therapy. Family opted for [facility] placement and this is planned for tomorrow. She had an echocardiogram when she was in and it showed severe left atrial dilatation with a left atrium of 41 mm, normal ejection fraction 60%, moderate mitral regurgitation, increased right-sided pressures. DISPOSITION: I anticipate discharge to [facility] tomorrow. Activity is as tolerated. No added salt diet. She will have a primary care provider at [facility]. She is on a pureed diet, so it should be pureed, no added salt. MEDICATIONS ON DISCHARGE: - aspirin 81 mg daily - amlodipine 10 mg daily to help to control her blood pressure better - carvedilol 6.25 mg twice a day - vitamin B12 500 mcg daily - digoxin 0.125 mg Wednesday, Wednesday, Wednesday, Wednesday, Wednesday - duloxetine 20 mg daily - losartan 50 mg twice a day - Topamax 50 mg twice a day No pending labs at the time of this dictation.
[2019-07-24 05:53] VITALS: BP 131/74
[2019-07-24] MEDS: amLODIPine 10 MG TAB PO SCH (08:25)
[2019-07-24 08:26] VITALS: BP 131/74
[2019-07-24] MEDS: DIGOXIN 0.125 MG TAB PO SCH (08:26)
[2019-07-24] MEDS: CARVedilol 6.25 MG TAB PO SCH (08:26)
[2019-07-24] MEDS: LOSARTAN 50 MG TAB PO SCH (08:26)
[2019-07-24] MEDS: DULoxetine 20 MG CAP (CYMBALTA) PO SCH (08:26)
[2019-07-24] MEDS: CYANOCOBALAMIN 500 MCG TAB PO SCH (08:27)
[2019-07-24] MEDS: TOPIRAMATE (TopAMAX) 25 MG TAB PO SCH (11:06)
== END 2019-07-24 12:15 | DRG 65 ==
LOC: M PCU 22:36 → M MS5PR 07-21 11:40
PROVIDERS: ADMIT Internal Medicine; ATTEND Family Medicine
DX: I63.541 Cerebral infarction due to unspecified occlusion or stenosis of right cerebellar artery (principal); M62.82 Rhabdomyolysis; G81.94 Hemiplegia, unspecified affecting left nondominant side; E85.4 Organ-limited amyloidosis; I11.0 Hypertensive heart disease with heart failure; I50.9 Heart failure, unspecified; I48.91 Unspecified atrial fibrillation; G43.709 Chronic migraine without aura, not intractable, without status migrainosus; I68.0 Cerebral amyloid angiopathy; F03.90 Unspecified dementia, unspecified severity, without behavioral disturbance, psychotic disturbance, mood disturbance, and anxiety; E80.4 Gilbert syndrome; D53.9 Nutritional anemia, unspecified; M54.9 Dorsalgia, unspecified; I44.7 Left bundle-branch block, unspecified; Z79.899 Other long term (current) drug therapy; Z90.49 Acquired absence of other specified parts of digestive tract; S40.012A Contusion of left shoulder, initial encounter; W18.09XA Striking against other object with subsequent fall, initial encounter; Y92.009 Unspecified place in unspecified non-institutional (private) residence as the place of occurrence of the external cause

== ENCOUNTER 2019-07-26 08:08 | Observation (INO) | payer MEDICARE ==
[~2019-07-26] VITALS: Ht 160 cm; Wt 45.1 kg
[~2019-07-26 08:08] MED LIST: AMLO10TA5 PO; ASPI81TAEC PO; B-121TAB3 PO; CARV6.25 PO; DIGO0.123 PO; DULO1CAP4 PO; FURO20TA2 PO; LOSA50TA88 PO; MED REC COMMENT; META0.522 PO; POTA10TA67 PO; TOPI50TA9 PO; TRAM50TA2 PO; VITMTA PO
[2019-07-26 08:50] LABS: HEMATOCRIT 42.9 % (36.0-47.0); HEMOGLOBIN 14.5 g/dl (12.0-15.5); MEAN CORPUSCULAR HEMOGLOBIN 34.2 pg (27.0-33.0); MEAN CORPUSCULAR HGB CONC 33.8 g/dl (32.0-36.5); MEAN CORPUSCULAR VOLUME 101.2 fl (80.0-96.0); PLATELET COUNT, AUTOMATED 201 10^3/uL (150-450); RED BLOOD COUNT 4.24 10^6/uL (4.00-5.40); WHITE BLOOD COUNT 5.2 10^3/uL (4.0-10.0)
[2019-07-26] MEDS: DULoxetine 20 MG CAP (CYMBALTA) PO SCH (09:00)
[2019-07-26] MEDS: METAMUCIL (PSYLLIUM) PACKET PO SCH (09:00)
[2019-07-26 09:16] LABS: ALBUMIN 3.5 GM/DL (3.2-5.2); BILIRUBIN,TOTAL 1.1 MG/DL (0.2-1.0); CALCIUM LEVEL 8.9 MG/DL (8.8-10.2); CK-MB VALUE MASS 4.2 NG/ML (<3.6); CREATININE FOR GFR 1.19 MG/DL (0.55-1.30); GLOMERULAR FILTRATION RATE 46.1 (>32); MB/CK RELATIVE INDEX 2.76 (< OR =4); TROPONIN I 0.04 NG/ML (< 0.10)
--- NOTE | 2019-07-26 09:28 | REP ---
CT study of the cervical spine without contrast: History: Injury in a fall. Technique: Helical scanning is acquired and overlapping 2 mm high resolution axial images were generated and reviewed at bone and soft tissue window settings. Coronal and sagittal multiplanar re-formations images are generated. CT findings: There is no evidence of cervical spine element fracture. No skull base fracture is seen. Cervical vertebral body heights are preserved. Alignment is normal. Facet joints are normally aligned bilaterally at each cervical level on multiplanar re-formations images. There is no evidence of intraspinal or paraspinal hematoma. No extra vertebral abnormality is seen. There are degenerative disc and osteoarthritic facet changes in the cervical spine. There is a dextroconvex scoliotic curvature in the cervical spine. There is some vascular calcification. Impression: Degenerative spondylosis changes and dextroconvex curvature. Otherwise negative CT study of the cervical spine without contrast. No fracture seen. Electronically Signed by Jorge Elizondo MD 07/26/2019 09:19 A
--- NOTE | 2019-07-26 09:44 | REP ---
CT brain without contrast: History: Injury in a fall. Comparison MRI study of the brain is from July 20, 2019. The recent MRI study demonstrate an acute/subacute right cerebral infarct pattern. Findings: Preliminary digital tractor operator laser leveling radiograph is unremarkable. The patient is edentulous. Bone window settings demonstrate vascular calcification in the distal vertebral and distal carotid arteries. Visualized paranasal sinuses are clear. No skull fracture is seen. No scalp hematoma is appreciated. On soft tissue window settings, there is encephalomalacia and some swelling in the right inferior frontal lobe. Similar encephalomalacia is seen and the inferior temporal lobe on the right and the posteromedial temporal lobe on the right matching the distribution of the restricted diffusion on recent MRI study July 20, 2019. No new infarction pattern is seen. There is no evidence of intracranial hemorrhage. There is generalized volume loss as before. No extra-axial fluid collection seen. No mass or midline shift is observed. Impression: Recent infarct pattern in the right inferior frontal lobe, the right temporal lobe. This matches a restricted diffusion pattern seen on July 20, 2019 MRI study. There is generalized atrophy, small vessel atherosclerotic change and vascular calcification. There is no evidence of intracranial hemorrhage. No skull fracture or intracranial injury seen. Electronically Signed by Jorge Elizondo MD 07/26/2019 04:45 P
--- NOTE | 2019-07-26 09:47 | REP ---
Lumbar spine CT study without contrast: History: Low back pain. No comparison lumbar spine CT. No comparison lumbar spine imaging. Technique: Helical scanning is acquired. 4 mm axial images are reformatted. Coronal and sagittal MPR images are generated and reviewed. CT findings: There is diffuse osteopenia. There are surgical clips in right upper quadrant of the abdomen. Vascular calcification is noted. No aortic aneurysm is seen. There is a small quantity of right pleural fluid. There is mild osteoporotic wedge compression deformity at the L1 vertebral body which appears old. No cortical step-off is seen. There is discogenic spurring anteriorly at T12-L1. L2, L3, and L4 are preserved in height. No fracture or collapse is seen at these levels. At L5, there is osteoporotic collapse of the superior endplate with some reactive sclerosis and a Schmorl's node. Again these changes appear old radiographically. No cortical step-off is seen. No posterior element fracture is appreciated at any level. Impression: Old appearing wedge compression deformity at L1 and at the L5. No definite acute finding. Diffuse osteoporosis. Vascular calcification. Small amount of right pleural fluid. Electronically Signed by Jorge Elizondo MD 07/26/2019 04:45 P
--- NOTE | 2019-07-26 10:05 | REP ---
CT of the chest without IV contrast for trauma, rib pain: There are no comparison studies. There is no pneumothorax. There is a small right pleural fluid collection compatible with hemothorax. There is a small focal density inferiorly in the right middle lobe compatible with pulmonary contusion. No rib fractures are identified. No pleural thickening. There are age indeterminate grade 1 compression deformities of the approximate T11 vertebral body and the L1 vertebral body. No mediastinal hematoma is identified. The unenhanced thoracic aorta is unremarkable except that the ascending aorta is dilated measuring up to 4.4 cm transversely. Cardiac size is enlarged. There is no pericardial effusion. In the upper abdomen the visualized areas of the liver, pancreas and spleen are unremarkable. The renal upper poles are unremarkable except for a right renal except for renal cysts. There are surgical clips in the gallbladder fossa. Impression: No definite rib fractures are identified. There is a right pleural fluid collection compatible with hemothorax . Small pulmonary contusion inferiorly in the right middle lobe is suspected. There are age indeterminate grade 1 compression fractures of the approximate T11 vertebral body and L1 vertebral body. Cardiac size is enlarged. There is no pericardial effusion. The ascending thoracic aorta is dilated measuring up to 4.4 centimeters. Electronically Signed by Emerson Killian MD 07/26/2019 09:56 A
[2019-07-26] MEDS ORDERED: BISA10SU27 PR (12:14)
[2019-07-26] MEDS ORDERED: ECOT81TA5 PO (12:14)
[2019-07-26] MEDS ORDERED: ACET1TAB55 PO (12:14)
[2019-07-26] MEDS ORDERED: MOM30SS PO (12:14)
[2019-07-26] MEDS ORDERED: FLEEENE12 PR (12:14)
[2019-07-26] MEDS ORDERED: AMLO10TA5 PO (12:14)
[2019-07-26] MEDS ORDERED: META28.32 PO (12:23)
[2019-07-26] MEDS ORDERED: TUBE5INJ ID (12:27)
[2019-07-26] MEDS ORDERED: PNEU0.5I2 IM (12:27)
[2019-07-26] MEDS ORDERED: hydrALAZINE INJ 20 MG/ML VIAL IV PRN (14:00)
[2019-07-26] MEDS ORDERED: FLEET ENEMA PR PRN (14:00)
[2019-07-26] MEDS ORDERED: BISACODYL 10 MG SUPP PR PRN (14:00)
[2019-07-26] MEDS ORDERED: MOM 30ML SUSPENSION UDC PO PRN (14:00)
[2019-07-26] MEDS ORDERED: ACETAMINOPHEN 325 MG TAB PO PRN (14:00)
[2019-07-26 16:00] VITALS: BP 144/88
--- NOTE | 2019-07-26 16:43 | HPE ---
DATE OF ADMISSION: 07/26/2019 TIME: Approximately 1:00 p.m. CHIEF COMPLAINT: Fall at custodial. HISTORY OF PRESENT ILLNESS: Mrs. Orr is an 83-year-old woman who was recently discharged from here 2 days ago following a right cerebral stroke with associated left upper extremity weakness. She has underlying amyloid angiopathy, which precludes her from being anticoagulated for her chronic atrial fibrillation. Following that hospitalization, the patient had been transferred to the local custodial. While there today, the patient suffered a fall and was brought into the emergency room to be evaluated. In the emergency room, she underwent a chest x-ray, as well as CT scan of her chest, which showed that she had a right pulmonary contusion, as well as a small right hemothorax. For these reasons, she was recommended for admission to the hospitalist service for observation to ensure that there is no worsening. The patient is not a reliable historian as she has underlying dementia. ALLERGIES: No known allergies. HOME MEDICATIONS: - Tylenol 650 mg every 4 hours as needed for pain or fever - Norvasc 10 mg daily - baby aspirin daily - Coreg 6.25 mg twice a day - B12 500 mg by mouth daily - digoxin 125 mg by mouth on Wednesday, Wednesday, Wednesday, Wednesday, Wednesday - duloxetine 20 mg daily - losartan 50 mg twice a day - milk of magnesia - multivitamin one capsule daily - potassium chloride 10 mEq by mouth daily - Topamax 50 mg twice a day PAST MEDICAL HISTORY: Recent right cerebral stroke with left upper extremity weakness. She has chronic atrial fibrillation but is not on anticoagulation due to amyloid angiopathy. The patient has a history of hypertension, dementia, Gilbert's disease, chronic back pain, history of chronic left bundle branch block. PAST SURGICAL HISTORY: Her surgical history cannot be obtained at this time. REVIEW OF SYSTEMS: Cannot be obtained at this time. FAMILY HISTORY: Cannot be obtained at this time due to the patient's underlying dementia. REVIEW OF SYSTEMS: Cannot be obtained. PHYSICAL EXAMINATION: The patient's temperature is 96.8, pulse 77, respirations 16, blood pressure 162/94, oxygen saturation 97% on room air. GENERAL: The patient is oriented to herself only. She does not know location, time or why she is here. Her head appears to be atraumatic. Her pupils are equal, round and reactive to light. I could not test for accommodation given her level of cooperation. Tympanic membranes are visualized bilaterally and otherwise clear with no evidence of infection. Oropharynx is without any visible trauma. Oral mucosa is moist. NECK: Supple. No audible carotid bruits. No palpable thyromegaly. LUNGS: Lung sounds are heard without . HEART: S1, S2. She is hypertensive at this time. No audible murmurs, rubs or gallops. Her rhythm shows that she is irregularly irregular. ABDOMEN: Soft, nontender, nondistended. EXTREMITIES: Without any cyanosis, clubbing or edema. NEUROLOGIC: She has left upper extremity weakness, which is residual from her recent stroke. RELEVANT LABORATORIES: White count 5.3, hemoglobin 14.5, hematocrit 42.9, platelet counts are 201. Sodium 130, potassium 4, chloride 109, bicarbonate 22, anion gap 8, BUN is 18, creatinine 1.19, GFR is 46, glucose is 109, AST is 31, ALT is 40, troponin is 0.04, albumin is 2.5. IMAGING STUDIES: Lumbar spinal CT showed old appearing wedge compression deformities at L1 and L5. No evidence of acute fracture. The patient does have diffuse osteoporosis. CT of the head without contrast showed recent infarct pattern in the right inferior frontal lobe and right temporal lobe, this matches a restrictive diffusion pattern seen on 07/20/2019 MRI study. No visible hemorrhages are noted or bone fractures. CT of the chest without intravenous contrast showed small right pleural fluid collection compatible with hemothorax, as well as small focal density inferiorly in the right middle lobe compatible with pulmonary contusion. No rib fractures are identified. No pleural thickening. CT of the cervical spine showed degenerative spondylosis changes and dextroconvex curvature, otherwise negative CT study, no evidence of fracture. IMPRESSION: 1. Status post ground level fall with right lung contusion and possible hemothorax. 2. History of recent stroke. 3. Chronic atrial fibrillation. 4. Amyloid angiopathy. PLAN: The patient will be admitted to observation status. She will be closely monitored for any worsening respiratory status. If none occurs, she can be discharged back to the custodial in the morning. She will be continued on her home medications at this time. She will be a FULL CODE per her most recent admission.
[2019-07-26] MEDS: CYANOCOBALAMIN 500 MCG TAB PO SCH (18:42)
[2019-07-26] MEDS: ASPIRIN 81 MG ENTERIC TAB PO SCH (18:42)
[2019-07-26] MEDS: MULTIVITAMINS/MINERALS THERAP 1 TAB PO SCH (18:42)
[2019-07-26] MEDS: amLODIPine 10 MG TAB PO SCH (18:43)
[2019-07-26] MEDS: POTASSIUM CHLORIDE 10 MEQ SR TABLET PO SCH (18:43)
[2019-07-26 20:00] VITALS: BP 156/70
--- NOTE | 2019-07-26 20:54 | ECGEPIP ---
[facility] - ED Test Date: 2019-07-26 Pat Name: FRITZ LAINEZ Department: Room: - Gender: Female Spinning Room Worker: JT : 1935 Requested By: NAIMA Nguyễn Order Number: [id number] Reading MD: Christina Faith Measurements Intervals [place] Rate: 69 P: [place]: 0 QRS: -19 QRSD: 165 T: 143 QT: 427 QTc: 459 Interpretive Statements ATRIAL FIBRILLATION LEFT BUNDLE BRANCH BLOCK DECREASED RATE 07/21/19 Electronically Signed on 07-26-2019 20:54:36 EDT by Christina Faith
[2019-07-26] MEDS: TOPIRAMATE (TopAMAX) 25 MG TAB PO SCH (21:18)
[2019-07-26] MEDS: CARVedilol 6.25 MG TAB PO SCH (21:19)
[2019-07-26] MEDS: LOSARTAN 50 MG TAB PO SCH (21:19)
[2019-07-26 23:59] VITALS: BP 130/58
[2019-07-27 04:00] VITALS: BP 140/80
[2019-07-27 06:55] LABS: BILIRUBIN,TOTAL 1.8 MG/DL (0.2-1.0); CALCIUM LEVEL 8.8 MG/DL (8.8-10.2); CREATININE FOR GFR 1.03 MG/DL (0.55-1.30); GLOMERULAR FILTRATION RATE 54.5 (>32); POTASSIUM SERUM 3.8 MEQ/L (3.5-5.1)
[2019-07-27 06:56] LABS: ALBUMIN 3.4 GM/DL (3.2-5.2); TOTAL PROTEIN 6.9 GM/DL (6.4-8.2)
[2019-07-27 08:00] VITALS: BP 133/77
--- NOTE | 2019-07-27 08:17 | REP ---
Portable chest x-ray: Single view. History: Followup right-sided pneumothorax. Comparison chest CT study July 26, 2019. Findings: The mandible overlies the lung apices but no pneumothorax is visible on either side. There is blunting of the pleural angles bilaterally suspicious for mild bilateral effusions. Cardiomegaly is again observed. Old post-traumatic changes are noted in the proximal humerus on the left and there is advanced diffuse osteoporosis. There is plate-like atelectasis in the right base. No infiltrate is seen. Electronically Signed by Jorge Elizondo MD 07/27/2019 08:08 A
[2019-07-27] MEDS: ASPIRIN 81 MG ENTERIC TAB PO SCH (09:54)
[2019-07-27] MEDS: POTASSIUM CHLORIDE 10 MEQ SR TABLET PO SCH (09:54)
[2019-07-27] MEDS: LOSARTAN 50 MG TAB PO SCH (09:54)
[2019-07-27 09:55] VITALS: BP 133/77
[2019-07-27] MEDS: TOPIRAMATE (TopAMAX) 25 MG TAB PO SCH (09:55)
[2019-07-27] MEDS: CARVedilol 6.25 MG TAB PO SCH (09:55)
[2019-07-27] MEDS: CYANOCOBALAMIN 500 MCG TAB PO SCH (09:56)
[2019-07-27] MEDS: amLODIPine 10 MG TAB PO SCH (09:56)
[2019-07-27] MEDS: MULTIVITAMINS/MINERALS THERAP 1 TAB PO SCH (09:56)
--- NOTE | 2019-07-27 10:25 | IPNPDOC ---
Subjective Date Seen The patient was seen on 07/27/19. Subjective Chief Complaint/HPI No respiratory issues this am, not complaining of chest pain or sob Objective Physical Examination General Exam: Positive: Alert, No Acute Distress Eye Exam: Positive: EOMI; Negative: Sclera icteric Neck Exam: Positive: Supple Chest Exam: Positive: Clear to auscultation Heart Exam: Positive: Rate Normal Telemetry: Positive: Atrial fibrillation Abdomen Exam: Positive: Normal bowel sounds Extremity Exam: Negative: Clubbing, Cyanosis, Edema Neuro Exam: Positive: Normal Speech Assessment /Plan Assessment # Status post ground level fall with right lung contusion and possible hemothorax - repeat CXR stable - CBC stable - may discharge back to SNF today - resume home medications w/o changes Plan/VTE VTE Prophylaxis Ordered?: Yes VTE Exclusion Mechanical Proph: N/A:VTE Prophy Ordered VTE Exclusion Pharmacological: N/A:VTE Prophy Ordered VS, I&O, 24H, Fishbone Vital Signs/I&O Vital Signs Date Time Temp Pulse Resp B/P (MAP) Pulse Ox O2 Delivery O2 Flow Rate FiO2 07/27/19 09:55 69 133/77 07/27/19 08:00 97.4 16 97 Room Air I&O- Last 24 Hours up to 6 AM 07/27/19 06:00 Intake Total 0 ml Output Total 0 ml Balance 0 ml Laboratory Data 24H LABS Laboratory Tests 2 07/27/19 05:49: Anion Gap 8, Glomerular Filtration Rate 54.5, Calcium Level 8.8, Total Bilirubin 1.8#H, Aspartate Amino Transf (AST/SGOT) 28, Alanine Aminotransferase (ALT/SGPT) 31, Alkaline Phosphatase 86, Total Protein 6.9, Albumin 3.4, Albumin/Globulin Ratio 0.97L CBC/BMP Laboratory Tests 07/27/19 05:49 Microbiology Microbiology 07/26/19 Blood Culture - Preliminary, Resulted No growth after 24 hours . All specim... 07/26/19 Blood Culture - Preliminary, Resulted No growth after 24 hours . All specim... MONET SHAHID MD Jul 27, 2019 10:25
[2019-07-27] MEDS: DULoxetine 20 MG CAP (CYMBALTA) PO SCH (11:17)
[2019-07-27] MEDS: METAMUCIL (PSYLLIUM) PACKET PO SCH (11:17)
--- NOTE | 2019-07-29 18:02 | DSES ---
DATE OF ADMISSION: 07/26/2019 DATE OF DISCHARGE: 07/27/2019 DISCHARGE DIAGNOSIS: Status post ground level fall with right lung contusion and possible hemothorax noted on chest x-ray. PROCEDURES PERFORMED DURING THIS HOSPITALIZATION: None. CONSULTANTS ON THIS CASE: None. DISPOSITION: The patient is discharged back to residential facility. LABORATORIES PENDING AT DISCHARGE: None. DISCHARGE INSTRUCTIONS: The patient is instructed to followup with her primary care provider. CONDITION AT DISCHARGE: Stable. RELEVANT LABORATORIES: White blood cell count 5.2, hemoglobin 14.5, hematocrit 42.9, platelet count 201,000. Sodium 137, potassium 3.8, chloride 100, bicarbonate 24, BUN 16, creatinine 1, glucose 101. IMAGING STUDIES: CT of the cervical spine showed old-appearing wedge compression deformity at L1 and L5. No definitive acute finding. Diffuse osteoporosis and vascular calcifications, small amount of right pleural fluid. CT of the head without contrast showed no acute intracranial events. Infarct reflecting her recent stroke. CT scan of the chest without contrast showed no rib fractures. There is a small right pleural fluid collection compatible with hemothorax, small pulmonary contusion inferiorly in the right middle lobe suspected. There are age indeterminate grade 1 compression fractures of the approximate T11 vertebral body and L1 vertebral body. Cardiac size is enlarged. There is no pericardial effusion. The ascending thoracic aorta is dilated, measuring up to 4.[address] of the cervical spine showed degenerative spondylosis changes with dextroconvex curvature, otherwise negative. CT study of the cervical spine without contrast showed no fracture. Repeat chest x-ray showed no infiltrate, no evidence of pneumothorax and only indicating mild bilateral effusions and atelectasis. No evidence of infiltrate is noted. DISCHARGE MEDICATIONS: - Tylenol 650 mg every 4 hours as needed for pain or fever - Norvasc 10 mg daily - baby aspirin daily - Dulcolax suppository as needed for constipation - Coreg 6.25 mg twice a day - vitamin B12 500 mcg by mouth daily - digoxin 135 mcg by mouth five times a week - duloxetine 20 mg by mouth daily - losartan 50 mg twice a day - milk of magnesia 10 mL daily as needed for constipation - multivitamin one capsule daily - potassium chloride 10 mEq by mouth daily - Metamucil powder 75 grams powder daily - Fleet enema as needed for constipation - Topamax 50 mg twice a day HOSPITAL COURSE: Ms. Luisa Orr is an 83-year-old woman who recently had suffered a stroke and has been discharged to local residential facility for subacute rehabilitation following her stroke. While there, the patient had suffered a fall and she was brought to the emergency room for evaluation. She underwent complete trauma survey and included the images done listed above, which did not show any acute fracture, but there was a question that she could possibly have a hemothorax and a pulmonary contusion. She was admitted to the hospitalist service on observation status and monitored overnight with no worsening dyspnea. Laboratories remained stable. Repeat chest x-ray failed to show any evidence of worsening hemothorax and only small bilateral pleural effusions and atelectasis. She was subsequently [facility] back to the [facility] to resume her [facility]. A total of 30 minutes was spent in completing all discharge paperwork.
== END 2019-07-27 13:38 ==
LOC: EDBD 08:08 → M ED 08:08 → M ED INP 08:09 → ENRESERVTM 14:03 → ENRESERVDT 14:03 → M PCU 14:56
PROVIDERS: ADMIT Internal Medicine; ATTEND Internal Medicine
DX: S27.1XXA Traumatic hemothorax, initial encounter (principal); S27.321A Contusion of lung, unilateral, initial encounter; W18.30XA Fall on same level, unspecified, initial encounter; Y92.129 Unspecified place in nursing home as the place of occurrence of the external cause; I48.20 Chronic atrial fibrillation, unspecified; I10 Essential (primary) hypertension; M81.0 Age-related osteoporosis without current pathological fracture; E85.9 Amyloidosis, unspecified; I68.0 Cerebral amyloid angiopathy; I69.334 Monoplegia of upper limb following cerebral infarction affecting left non-dominant side; F03.90 Unspecified dementia, unspecified severity, without behavioral disturbance, psychotic disturbance, mood disturbance, and anxiety; I77.810 Thoracic aortic ectasia; M47.812 Spondylosis without myelopathy or radiculopathy, cervical region; E80.4 Gilbert syndrome; M54.9 Dorsalgia, unspecified; I44.7 Left bundle-branch block, unspecified; Z79.899 Other long term (current) drug therapy; Z79.82 Long term (current) use of aspirin
CPT/HCPCS: 36415; 70450; 71045; 71250; 72125; 72131; 80053; 82550; 82553; 84484; 85027; 87040; 93005; 97530; 97535; 99285; G0378

== ENCOUNTER → 2019-08-04 | Outpatient (REF) ==
[~2019-08-04] MED LIST changes: +ACET1TAB55 PO; +BISA10SU27 PR; +ECOT81TA5 PO; +FLEEENE12 PR; +META28.32 PO; +MOM30SS PO; +PNEU0.5I2 IM; +TUBE5INJ ID
[2019-08-04 15:46] LABS: INFLUENZA A AMPLIFICATION NEGATIVE (NEGATIVE); INFLUENZA B AMPLIFICATION NEGATIVE (NEGATIVE)
== END ==
LOC: SKLAB2 14:05
PROVIDERS: ATTEND Nurse Practitioner Family
DX: R50.9 Fever, unspecified (principal)

== ENCOUNTER → 2019-09-12 | Outpatient (REF) | payer MEDICARE | LOC: SKLAB2 10:49 | PROVIDERS: ATTEND Internal Medicine | DX: R19.7 Diarrhea, unspecified (principal) ==

== ENCOUNTER → 2019-09-13 | Outpatient (REF) | payer MEDICARE ==
[2019-09-13 10:04] LABS: HEMATOCRIT 38.5 % (36.0-47.0); HEMOGLOBIN 12.2 g/dl (12.0-15.5); MEAN CORPUSCULAR HEMOGLOBIN 32.6 pg (27.0-33.0); MEAN CORPUSCULAR HGB CONC 31.7 g/dl (32.0-36.5); MEAN CORPUSCULAR VOLUME 102.9 fl (80.0-96.0); PLATELET COUNT, AUTOMATED 175 10^3/uL (150-450); RED BLOOD COUNT 3.74 10^6/uL (4.00-5.40); WHITE BLOOD COUNT 5.5 10^3/uL (4.0-10.0)
[2019-09-13 10:38] LABS: CREATININE FOR GFR 1.26 MG/DL (0.55-1.30); GLOMERULAR FILTRATION RATE 43.2 (>32); POTASSIUM SERUM 4.3 MEQ/L (3.5-5.1)
== END ==
LOC: SKLAB2 09:14
PROVIDERS: ATTEND Internal Medicine
DX: R19.7 Diarrhea, unspecified (principal)

== ENCOUNTER → 2019-09-26 | Outpatient (REF) | LOC: SKLAB2 07:00 | PROVIDERS: ATTEND Internal Medicine | DX: Z03.818 Encounter for observation for suspected exposure to other biological agents ruled out (principal) ==

== ENCOUNTER → 2019-10-03 | Outpatient (REF) | payer MEDICARE ==
[2019-10-03 09:43] LABS: DIGOXIN LEVEL 1.1 NG/ML (0.5-2.0)
== END ==
LOC: SKLAB2 07:00
PROVIDERS: ATTEND Internal Medicine
DX: Z79.899 Other long term (current) drug therapy (principal)

== ENCOUNTER → 2019-10-05 | Outpatient (REF) | payer MEDICARE | LOC: SKLAB2 11:44 | PROVIDERS: ATTEND Internal Medicine | DX: R19.7 Diarrhea, unspecified (principal) ==

== ENCOUNTER → 2019-10-06 | Outpatient (REF) | payer MEDICARE ==
[2019-10-06 12:05] LABS: CLOSTRIDIUM DIFFICILE PCR NEGATIVE (NEGATIVE)
== END ==
LOC: SKLAB2 14:15
PROVIDERS: ATTEND Internal Medicine
DX: R19.7 Diarrhea, unspecified (principal)

== ENCOUNTER → 2019-11-28 | Outpatient (REF) | payer MEDICARE ==
[~2019-11-28] MED LIST changes: -AMLO10TA5 PO; +AMLO1TAB25 PO; +ATIV2INJ5 IV; +BALMEX TOP; +BARRIER CREAM TOP; +CARA1TAB6 PO; +DOCU100C16 PO; +ENSU1LIQ36 PO; +FEVE650S3 PR; +LOPE-25 PO; +MORP2INJ4 IV; +ONDA4INJ4 IV; +PROT1TAB2 PO; +SCOP1PAT2 TOP; +SSD TOP
[2019-11-28 09:15] LABS: CALCIUM LEVEL 8.9 MG/DL (8.8-10.2); CREATININE FOR GFR 1.08 MG/DL (0.55-1.30); GLOMERULAR FILTRATION RATE 51.5 (>32); POTASSIUM SERUM 4.1 MEQ/L (3.5-5.1)
== END ==
LOC: SKLAB2 07:00
PROVIDERS: ATTEND Internal Medicine
DX: I10 Essential (primary) hypertension (principal)

== ENCOUNTER → 2019-12-03 | Outpatient (REF) | payer MEDICARE ==
[~2019-12-03] MED LIST changes: +AMLO10TA5 PO; -AMLO1TAB25 PO; -ATIV2INJ5 IV; -BALMEX TOP; -BARRIER CREAM TOP; -CARA1TAB6 PO; -DOCU100C16 PO; -ENSU1LIQ36 PO; -FEVE650S3 PR; -LOPE-25 PO; -MORP2INJ4 IV; -ONDA4INJ4 IV; -PROT1TAB2 PO; -SCOP1PAT2 TOP; -SSD TOP
[2019-12-03 11:19] LABS: CLOSTRIDIUM DIFFICILE PCR NEGATIVE (NEGATIVE)
== END ==
LOC: M LAB 10:01 → SKLAB2 10:01
PROVIDERS: ATTEND Internal Medicine
DX: R19.7 Diarrhea, unspecified (principal)

== ENCOUNTER → 2019-12-26 | Outpatient (REF) | payer MEDICARE ==
[~2019-12-26] MED LIST changes: -AMLO10TA5 PO; +AMLO1TAB25 PO; +ATIV2INJ5 IV; +BALMEX TOP; +BARRIER CREAM TOP; +CARA1TAB6 PO; +DOCU100C16 PO; +ENSU1LIQ36 PO; +FEVE650S3 PR; +LOPE-25 PO; +MORP2INJ4 IV; +ONDA4INJ4 IV; +PROT1TAB2 PO; +SCOP1PAT2 TOP; +SSD TOP
== END ==
LOC: SKLAB2 14:26
PROVIDERS: ATTEND Internal Medicine
DX: Z51.81 Encounter for therapeutic drug level monitoring (principal); Z79.899 Other long term (current) drug therapy

== ENCOUNTER → 2020-01-15 | Outpatient (REF) | payer MEDICARE ==
[2020-01-15 22:36] LABS: BASO % 0.3 % (0.0-1.0); EOS % 0.1 % (0.0-3.0); HEMATOCRIT 25.9 % (36.0-47.0); HEMOGLOBIN 8.5 g/dl (12.0-15.5); LYMPH % 14.2 % (24.0-44.0); MEAN CORPUSCULAR HEMOGLOBIN 34.3 pg (27.0-33.0); MEAN CORPUSCULAR HGB CONC 32.8 g/dl (32.0-36.5); MEAN CORPUSCULAR VOLUME 104.4 fl (80.0-96.0); MONO # 0.7 10^3/uL (0.0-0.8); MONO % 9.3 % (0.0-5.0); NEUTROPHILS # 5.5 10^3/uL (1.5-8.5); NEUTROPHILS % 75.7 % (36.0-66.0); PLATELET COUNT, AUTOMATED 136 10^3/uL (150-450); RED BLOOD COUNT 2.48 10^6/uL (4.00-5.40); WHITE BLOOD COUNT 7.2 10^3/uL (4.0-10.0)
[2020-01-15 22:59] LABS: ALBUMIN 2.8 GM/DL (3.2-5.2); BILIRUBIN,TOTAL 0.4 MG/DL (0.2-1.0); CALCIUM LEVEL 8.6 MG/DL (8.8-10.2); CREATININE FOR GFR 1.46 MG/DL (0.55-1.30); GLOMERULAR FILTRATION RATE 36.3 (>32); POTASSIUM SERUM 5.7 MEQ/L (3.5-5.1); TOTAL PROTEIN 5.7 GM/DL (6.4-8.2)
== END ==
LOC: SKLAB2 22:24
PROVIDERS: ATTEND Internal Medicine
DX: R19.5 Other fecal abnormalities (principal)

== ENCOUNTER 2020-01-16 16:11 | Inpatient (IN) | payer MEDICARE ==
[2020-01-16] VITALS (8 sets, daily range): BP systolic 101–130; BP diastolic 55–83
[~2020-01-16 16:11] MED LIST changes: -ATIV2INJ5 IV; -BALMEX TOP; -BARRIER CREAM TOP; -CARA1TAB6 PO; -DOCU100C16 PO; -ENSU1LIQ36 PO; -FEVE650S3 PR; -LOPE-25 PO; -MORP2INJ4 IV; -ONDA4INJ4 IV; -PROT1TAB2 PO; -SCOP1PAT2 TOP; -SSD TOP
--- NOTE | 2020-01-16 17:06 | REPVR ---
PROCEDURE INFORMATION: Exam: XR Chest, 1 View Exam date and time: 01/16/2020 4:50 PM Age: 84 years old Clinical indication: Other: Anemia TECHNIQUE: Imaging protocol: XR of the chest Views: 1 view. COMPARISON: [facility] PORTABLE CHEST X-RAY 07/27/2019 7:16 AM FINDINGS: Lungs: Evaluation of the lung apices limited by marked kyphoscoliotic curvature and overlying mandible. Remaining visualized lungs appear clear. Calcifications tracheobronchial tree. Pleural space: Unremarkable. No pleural effusion. No pneumothorax. Heart/Mediastinum: Cardiomegaly. Bones/joints: Osteoporosis. Fracture deformity left humerus related to prior fractures. IMPRESSION: 1. Cardiomegaly. 2. No acute infiltrates. Electronically signed by: Darrin Méndez On 01/16/2020 17:05:49 PM
[2020-01-16 17:07] LABS: BASO % 0.1 % (0.0-1.0); LYMPH # 1.2 10^3/uL (1.5-5.0); LYMPH % 14.4 % (24.0-44.0); MEAN CORPUSCULAR HEMOGLOBIN 34.8 pg (27.0-33.0); MEAN CORPUSCULAR HGB CONC 32.7 g/dl (32.0-36.5); MEAN CORPUSCULAR VOLUME 106.4 fl (80.0-96.0); MONO # 0.5 10^3/uL (0.0-0.8); MONO % 6.4 % (0.0-5.0); NEUTROPHILS # 6.4 10^3/uL (1.5-8.5); NEUTROPHILS % 78.5 % (36.0-66.0); PLATELET COUNT, AUTOMATED 126 10^3/uL (150-450); RED BLOOD COUNT 1.87 10^6/uL (4.00-5.40); WHITE BLOOD COUNT 8.1 10^3/uL (4.0-10.0)
[2020-01-16 17:16] LABS: ALBUMIN 2.7 GM/DL (3.2-5.2); BILIRUBIN,DIRECT 0.1 MG/DL (0.0-0.2); BILIRUBIN,TOTAL 0.3 MG/DL (0.2-1.0); CALCIUM LEVEL 7.9 MG/DL (8.8-10.2); CK-MB VALUE MASS 3.1 NG/ML (<3.6); CREATININE FOR GFR 1.36 MG/DL (0.55-1.30); GLOMERULAR FILTRATION RATE 39.4 (>32); MB/CK RELATIVE INDEX 3.78 (< OR =4); POTASSIUM SERUM 4.7 MEQ/L (3.5-5.1); TOTAL PROTEIN 5.5 GM/DL (6.4-8.2); TROPONIN I 0.06 NG/ML (< 0.10)
[2020-01-16 17:24] LABS: HEMATOCRIT 19.9 % (36.0-47.0); HEMOGLOBIN 6.5 g/dl (12.0-15.5); INR 1.25; PROTHROMBIN TIME 15.9 SECONDS (11.8-14.0)
[2020-01-16 17:25] LABS: PARTIAL THROMBOPLASTIN TIME 25.2 SECONDS (25.0-38.4)
[2020-01-16] MEDS ORDERED: MOM 30ML SUSPENSION UDC PO PRN (17:30)
[2020-01-16] MEDS ORDERED: ACETAMINOPHEN TAB 650MG DOSE (2X325MG) PO PRN (17:30)
[2020-01-16] MEDS ORDERED: D5W/0.9% SODIUM CHLORIDE 1,000 ML IV SCH (17:31)
--- NOTE | 2020-01-16 18:09 | HPEPDOC ---
[facility] Medical History & Physical Date of Admission Jan 16, 2020 Date of Service: Jan 16, 2020 Attending Physician: VICK HINES MD History and Physical CHIEF COMPLAINT: Rectal bleeding HISTORY OF PRESENT ILLNESS: 84 yo F with a hx of CVA, chronic afib, CKD III, Alzheimer's dementia, Vascular dementia, presented to [facility] ED from [facility] due to acute bleeding per rectum. Noted to have Hgb 6.2 this morning, was brought to transfusion center however developed hypotension and was transfered to the ED for acute blood transfusion and monitoring. Patient is DNR/DNI, MOLST forms signed. Spoke to patient's daughter - Funmilayo Trevizo (tel [phone]), wishes only for selective management, and to avoid any invasive diagnostic tests. Wishes to proceed with blood transfusion. Repeat Hgb in ED 6.5. Positive guaic. Cr 1.36. Na 149. PAST MEDICAL HISTORY: 1. CVA - R cerebellar stroke 2. Chronic atrial fibrillation 3. Amyloid angiopathy 4. CKD III 5. 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 Chronic migraines 8. Alzheimer's Dementia 9. Vascular Dementia 10. Dysphagia 11. Pulmonary contusion PAST SURGICAL HISTORY: Non contributory SOCIAL HISTORY: Res FAMILY HISTORY: Unable to obtain, advanced dementia. ALLERGIES: Please see below. REVIEW OF SYSTEMS: Unable to obtain clear ROS, advanced dementia. HOME MEDICATIONS: Please see below. PHYSICAL EXAMINATION: VITAL SIGNS: please see below GENERAL APPEARANCE: pale, comfortable in bed. HEENT: pale conjunctivae, PERRLA. CARDIOVASCULAR: irregular, S1, S2. LUNGS: CTAB. ABDOMEN: soft, non tender, non distended, BS+. MUSCULOSKELETAL: pes carinatum EXTREMITIES: no edema NEUROLOGICAL: unable to complete neuro exam, not following directions. PSYCHIATRIC: oriented x 0. calm. LABORATORY DATA: See below. IMAGING: CXR (01/16/20) IMPRESSION: 1. Cardiomegaly. 2. No acute infiltrates. ASSESSMENT: 84 yo F with a hx of CVA, chronic afib, CKD III, Alzheimer's dementia, Vascular dementia, presented to [facility] ED from [facility] due to acute bleeding per rectum. Hgb 6.2. Per MOLST and family wishes, no invasive testing, selective treatment only. Receiving pRBC transfusion. . PLAN: 1. Acute lower GI bleeding: Hg 6.5. 2 units pRBC ordered. Repeat H/H. No GI involvement for endoscopy per family wishes. PPI IV bid. 2. Afib: no AC. Home meds coreg 6.25 mg PO BID. Digoxin 0.125 mg M,W,F,Sat,Sun. Serum digoxin lvl 1.1. Hold meds. 3. HTN: amlodipine 10 mg PO daily, Coreg 6.25 mg PO BID, losartan 50 mg PO BID. BP meds held due to hypotension 4. Migraines: on topiramate 50 mg PO BID. 5. CVA: on ASA 81 mg daily. Hold due to LGIB. 6. Hypernatremia: D51/2NS at 100 cc/hr. Repeat CMp in AM. 7. Neuropathy: duloxetine 8. Dysphagia: CHEMIST ENZYMES eval DVT ppx: SCDs, SEQ Dispo: return to [facility] once medically stable. Vital Signs Vital Signs Date Time Temp Pulse Resp B/P (MAP) Pulse Ox O2 Delivery O2 Flow Rate FiO2 01/16/20 17:55 97.8 107 24 101/58 95 Room Air Laboratory Data Labs 24H Laboratory Tests 2 01/16/20 16:34: Immature Granulocyte % (Auto) 0.6, Neutrophils (%) (Auto) 78.5H, Lymphocytes (%) (Auto) 14.4L, Monocytes (%) (Auto) 6.4H, Eosinophils (%) (Auto) 0.0, Basophils (%) (Auto) 0.1, Neutrophils # (Auto) 6.4, Lymphocytes # (Auto) 1.2L, Monocytes # (Auto) 0.5, Eosinophils # (Auto) 0.0, Basophils # (Auto) 0.0, Nucleated Red Blood Cells % (auto) 0.0, Prothrombin Time 15.9H, Prothromb Time International Ratio 1.25, Activated Partial Thromboplast Time 25.2, Anion Gap 9, Glomerular Filtration Rate 39.4, Calcium Level 7.9L, Total Bilirubin 0.3, Direct Bilirubin 0.1, Aspartate Amino Transf (AST/SGOT) 17, Alanine Aminotransferase (ALT/SGPT) 14, Alkaline Phosphatase 47, Total Creatine Kinase 82, Creatine Kinase MB 3.1, Creatine Kinase MB Relative Index 3.78, Troponin I 0.06, Total Protein 5.5L, Albumin 2.7L, Albumin/Globulin Ratio 1.0L, Lipase 76, Digoxin Level 1.1 CBC/BMP Laboratory Tests 01/16/20 16:34 Home Medications Scheduled Amlodipine Besylate (Amlodipine Besylate) 10 Mg Tablet, 10 MG PO DAILY Aspirin (Ecotrin) 81 Mg Tablet.dr, 81 MG PO DAILY ON HOLD FOR 5 DAYS, RESTART 01/22/20 Carvedilol (Carvedilol) 6.25 Mg Tablet, 6.25 MG PO BID Digoxin (Digoxin) 125 Mcg Tablet, 125 MCG PO 5XW WEDNESDAY, WEDNESDAY, WEDNESDAY, WEDNESDAY AND WEDNESDAY Duloxetine Hcl (Duloxetine HCl) 20 Mg Capsule.dr, 20 MG PO DAILY Losartan Potassium (Losartan Potassium) 50 Mg Tablet, 50 MG PO BID Multivitamins (Thera M Plus Tablet) 1 Each Tablet, 1 TAB PO DAILY Potassium Chloride (Potassium Chloride) 10 Meq Tab.er.prt, 10 MEQ PO DAILY Topiramate (Topiramate) 50 Mg Tablet, 50 MG PO BID Scheduled PRN Acetaminophen (Acetaminophen) 325 Mg Tablet, 650 MG PO Q4H PRN for PAIN / FEVER Bisacodyl (Bisacodyl) 10 Mg Supp.rect, 10 MG [place] DAILY PRN for CONSTIPATION Loperamide HCl (Anti-Diarrheal) 2 Mg Capsule, 2 MG PO Q4H PRN for DIARRHEA Milk Of Magnesia (Milk of Magnesia) 2,400 Mg/10 Ml Oral.susp, 10 ML PO DAILY PRN for CONSTIPATION Sodium Phosphate,[place]-Dibasic (Fleet Enema) 133 Ml Enema, 1 MYLES [place] DAILY PRN for CONSTIPATION Allergies Coded Allergies: No Known Allergies (Verified Allergy, Unknown, 07/19/19) A-FIB/CHADSVASC A-FIB History Current/History of A-Fib/PAF?: Yes Current PO Anticoag Therapy: No VICK HINES MD Jan 16, 2020 18:09
[2020-01-16] MEDS ORDERED: LOPE-25 PO (18:14)
[2020-01-16] MEDS ORDERED: PROT1TAB2 PO (18:24)
[2020-01-16] MEDS ORDERED: SSD TOP (18:24)
[2020-01-16] MEDS ORDERED: ENSU1LIQ36 PO (18:24)
[2020-01-16] MEDS ORDERED: CARA1TAB6 PO (18:24)
[2020-01-16] MEDS ORDERED: BARRIER CREAM TOP (18:24)
[2020-01-16] MEDS ORDERED: BALMEX TOP (18:24)
[2020-01-16] MEDS ORDERED: FEVE650S3 PR (18:24)
[2020-01-16] MEDS: D5W/0.9% SODIUM CHLORIDE 1,000 ML IV SCH (19:05)
[2020-01-16] MEDS: TOPIRAMATE (TopAMAX) 25 MG TAB PO SCH (21:05)
[2020-01-16] MEDS: DOCUSATE SODIUM 100 MG CAP PO SCH (21:05)
[2020-01-16] MEDS: PANTOPRAZOLE 40MG VIAL (C9113 PER 1) IV SCH (21:05)
[2020-01-17] VITALS (11 sets, daily range): BP systolic 102–156; BP diastolic 51–89
[2020-01-17 00:38] LABS: HEMATOCRIT 22.3 % (36.0-47.0); HEMOGLOBIN 7.5 g/dl (12.0-15.5)
[2020-01-17 01:10] LABS: CK-MB VALUE MASS 2.7 NG/ML (<3.6); MB/CK RELATIVE INDEX 3.29 (< OR =4); TROPONIN I 0.06 NG/ML (< 0.10)
[2020-01-17] MEDS: D5W/0.9% SODIUM CHLORIDE 1,000 ML IV SCH (06:33)
[2020-01-17 08:24] LABS: BASO % 0.5 % (0.0-1.0); EOS # 0.1 10^3/uL (0.0-0.5); EOS % 0.9 % (0.0-3.0); HEMATOCRIT 32.5 % (36.0-47.0); LYMPH # 1.6 10^3/uL (1.5-5.0); LYMPH % 21.5 % (24.0-44.0); MEAN CORPUSCULAR HEMOGLOBIN 31.1 pg (27.0-33.0); MEAN CORPUSCULAR HGB CONC 33.5 g/dl (32.0-36.5); MEAN CORPUSCULAR VOLUME 92.9 fl (80.0-96.0); MONO # 0.7 10^3/uL (0.0-0.8); MONO % 9.7 % (0.0-5.0); NEUTROPHILS % 65.8 % (36.0-66.0); PLATELET COUNT, AUTOMATED 106 10^3/uL (150-450); WHITE BLOOD COUNT 7.6 10^3/uL (4.0-10.0)
[2020-01-17 08:43] LABS: HEMOGLOBIN 10.9 g/dl (12.0-15.5)
[2020-01-17 09:15] LABS: ALBUMIN 2.6 GM/DL (3.2-5.2); BILIRUBIN,TOTAL 2.3 MG/DL (0.2-1.0); CALCIUM LEVEL 8.1 MG/DL (8.8-10.2); CREATININE FOR GFR 1.22 MG/DL (0.55-1.30); GLOMERULAR FILTRATION RATE 44.7 (>32); POTASSIUM SERUM 4.3 MEQ/L (3.5-5.1); TOTAL PROTEIN 4.9 GM/DL (6.4-8.2)
[2020-01-17] MEDS: MULTIVITAMINS/MINERALS THERAP 1 TAB PO SCH (09:30)
[2020-01-17] MEDS: PANTOPRAZOLE 40MG VIAL (C9113 PER 1) IV SCH ×2 (09:30→20:51)
[2020-01-17] MEDS: TOPIRAMATE (TopAMAX) 25 MG TAB PO SCH ×2 (09:30→20:51)
[2020-01-17] MEDS: DOCUSATE SODIUM 100 MG CAP PO SCH ×2 (09:30→20:40)
[2020-01-17] MEDS: DULoxetine 20 MG CAP (CYMBALTA) PO SCH (09:30)
[2020-01-17] MEDS ORDERED: NS 0.45% 1,000 ML IV SCH (12:15)
--- NOTE | 2020-01-17 14:23 | IPNPDOC ---
Date Seen The patient was seen on 01/17/20. Progress Note SUBJECTIVE: patient was seen and examined at bedside. Denies fevers, chills, headache, tremors, chest pain or urticaria. Has difficulty verbalizing symptoms. Concern for hemolysis this morning, urine turned dark nicholas. T bili elevated on CMP. OBJECTIVE PHYSICAL EXAMINATION: VITAL SIGNS: Please see below. GENERAL: NAD HEENT: PERRLA, EOMI CARDIOVASCULAR: RRR, normal S1, S2, BP wnl. RESPIRATORY: lungs CTAB. ABDOMINAL: soft, non tender EXTREMITIES: no edema, no joint deformity NEUROLOGICAL: unable to complete PSYCHOLOGICAL: AAO x 1 LABORATORY DATA, IMAGING STUDIES, MICROBIOLOGY: Please see below. DVT prophylaxis ordered?: COLLIN, SCD CXR (01/16/20) IMPRESSION: 1. Cardiomegaly. 2. No acute infiltrates. ASSESSMENT: 84 yo F with a hx of CVA, chronic afib, CKD III, Alzheimer's dementia, Vascular dementia, presented to [facility] ED from [facility] due to acute bleeding per rectum. Hgb 6.2. Per MOLST and family wishes, no invasive testing, selective treatment only. Receiving pRBC transfusion. . PLAN: 1. Acute lower GI bleeding: received 4 units pRBC. Hgb increased 6.5 to 10.5. 2. Elevated T bili: concern for hemolysis. Dark nicholas urine. Spoke to blood bank, hemolysis panel ordered, ABO being verified. Sent for repeat CBC, direct bili, retic count, LDH, haptoglobin, UA. Patient is hemodynamically stable at this time. Discussed with Dr. Martínez, hematology consulted. 3. Afib: no AC. Home meds coreg 6.25 mg PO BID. Digoxin 0.125 mg M,W,F,Sat,Sun. Serum digoxin lvl 1.1. Hold meds. 4. HTN: amlodipine 10 mg PO daily, Coreg 6.25 mg PO BID, losartan 50 mg PO BID. BP meds held due to hypotension 5. Migraines: on topiramate 50 mg PO BID. 6. CVA: on ASA 81 mg daily. Hold due to LGIB. 7. Hypernatremia: D51/2NS at 100 cc/hr. Repeat CMp in AM. 8. Neuropathy: duloxetine 9. 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 DVT ppx: SCDs, SEQ Dispo: return to [facility] once medically stable. VS, I&O, [facility] Vital Signs/I&O Vital Signs Date Time Temp Pulse Resp B/P (MAP) Pulse Ox O2 Delivery O2 Flow Rate FiO2 01/17/20 12:00 96.6 78 16 156/89 (111) 97 Room Air I&O- Last 24 Hours up to 6 AM 01/17/20 06:00 Intake Total 1200 ml Output Total 100 ml Balance 1100 ml Laboratory Data 24H LABS Laboratory Tests 2 01/16/20 16:34: Immature Granulocyte % (Auto) 0.6, Neutrophils (%) (Auto) 78.5H, Lymphocytes (%) (Auto) 14.4L, Monocytes (%) (Auto) 6.4H, Eosinophils (%) (Auto) 0.0, Basophils (%) (Auto) 0.1, Neutrophils # (Auto) 6.4, Lymphocytes # (Auto) 1.2L, Monocytes # (Auto) 0.5, Eosinophils # (Auto) 0.0, Basophils # (Auto) 0.0, Nucleated Red Blood Cells % (auto) 0.0, Prothrombin Time 15.9H, Prothromb Time International Ratio 1.25, Activated Partial Thromboplast Time 25.2, Anion Gap 9, Glomerular Filtration Rate 39.4, Calcium Level 7.9L, Total Bilirubin 0.3, Direct Bilirubin 0.1, Aspartate Amino Transf (AST/SGOT) 17, Alanine Aminotransferase (ALT/SGPT) 14, Alkaline Phosphatase 47, Total Creatine Kinase 82, Creatine Kinase MB 3.1, Creatine Kinase MB Relative Index 3.78, Troponin I 0.06, Total Protein 5.5L, Albumin 2.7L, Albumin/Globulin Ratio 1.0L, Lipase 76, Digoxin Level 1.1 01/17/20 00:29: Total Creatine Kinase 82, Creatine Kinase MB 2.7, Creatine Kinase MB Relative In dex 3.29, Troponin I 0.06 01/17/20 08:00: Immature Granulocyte % (Auto) 1.6, Neutrophils (%) (Auto) 65.8, Lymphocytes (%) (Auto) 21.5L, Monocytes (%) (Auto) 9.7H, Eosinophils (%) (Auto) 0.9, Basophils (%) (Auto) 0.5, Neutrophils # (Auto) 5.0, Lymphocytes # (Auto) 1.6, Monocytes # (Auto) 0.7, Eosinophils # (Auto) 0.1, Basophils # (Auto) 0.0, Nucleated Red Blood Cells % (auto) 0.3H, Anion Gap 6L, Glomerular Filtration Rate 44.7, Calcium Level 8.1L, Total Bilirubin 2.3#H, Aspartate Amino Transf (AST/SGOT) 19, Alanine Aminotransferase (ALT/SGPT) 15, Alkaline Phosphatase 43L, Total Protein 4.9L, Albumin 2.6L, Albumin/Globulin Ratio 1.1L CBC/BMP Laboratory Tests 01/16/20 16:34 01/17/20 00:29 01/17/20 08:00 VICK HINES MD Jan 17, 2020 14:23
[2020-01-17 14:57] LABS: APPEARANCE, URINE CLOUDY (CLEAR); BACTERIA, URINE AUTO 3+ (NEGATIVE); BILIRUBIN, URINE AUTO NEGATIVE (NEGATIVE); BLOOD, URINE BLOOD 3+ (NEGATIVE); COLOR, URINE RED (YELLOW); GLUCOSE, URINE (UA) AUTO NEGATIVE (NEGATIVE); KETONE, URINE AUTO NEGATIVE (NEGATIVE); LEUKOCYTE ESTERASE, URINE AUTO TRACE (NEGATIVE); NITRITE, URINE AUTO NEGATIVE (NEGATIVE); PROTEIN, URINE AUTO NEGATIVE (NEGATIVE); RBC, URINE AUTO 11 /HPF (0-3); SQUAMOUS EPITHELIAL CELL UR AU 1 /HPF (0-6); UROBILINOGEN, URINE AUTO 0.2 mg/dL (0.0-2.0); WBC, URINE AUTO 1 /HPF (0-3)
[2020-01-17 15:08] LABS: BASO # 0.1 10^3/uL (0.0-0.2); BASO % 0.7 % (0.0-1.0); EOS # 0.1 10^3/uL (0.0-0.5); EOS % 0.8 % (0.0-3.0); HEMATOCRIT 32.1 % (36.0-47.0); HEMOGLOBIN 10.9 g/dl (12.0-15.5); LYMPH # 1.4 10^3/uL (1.5-5.0); LYMPH % 19.4 % (24.0-44.0); MEAN CORPUSCULAR HEMOGLOBIN 31.2 pg (27.0-33.0); MONO # 0.7 10^3/uL (0.0-0.8); MONO % 9.2 % (0.0-5.0); PLATELET COUNT, AUTOMATED 105 10^3/uL (150-450); RED BLOOD COUNT 3.49 10^6/uL (4.00-5.40); WHITE BLOOD COUNT 7.4 10^3/uL (4.0-10.0)
[2020-01-17 15:44] LABS: ALBUMIN 2.9 GM/DL (3.2-5.2); BILIRUBIN,DIRECT 0.3 MG/DL (0.0-0.2); BILIRUBIN,TOTAL 2.3 MG/DL (0.2-1.0); CALCIUM LEVEL 8.2 MG/DL (8.8-10.2); CREATININE FOR GFR 1.06 MG/DL (0.55-1.30); GLOMERULAR FILTRATION RATE 52.6 (>32); TOTAL PROTEIN 5.4 GM/DL (6.4-8.2)
[2020-01-17] MEDS ORDERED: ACETAMINOPHEN TAB 650MG DOSE (2X325MG) PO PRN (20:00)
[2020-01-17] MEDS ORDERED: MORPHINE 2 MG/ML 1ML VIAL (J2270) IV PRN (20:00)
[2020-01-17] MEDS ORDERED: LORazepam 2 MG/ML VIAL IV PRN (20:00)
[2020-01-17] MEDS ORDERED: ONDANSETRON 4MG/2ML VIAL IV PRN (20:00)
[2020-01-17] MEDS ORDERED: SCOPOLAMINE 1MG TRANSDERMAL PATCH TOP PRN (20:00)
[2020-01-18] MEDS: TOPIRAMATE (TopAMAX) 25 MG TAB PO SCH ×2 (08:23→21:36)
[2020-01-18] MEDS: PANTOPRAZOLE 40MG VIAL (C9113 PER 1) IV SCH ×2 (08:23→21:35)
[2020-01-18] MEDS: MULTIVITAMINS/MINERALS THERAP 1 TAB PO SCH (08:23)
[2020-01-18] MEDS: DOCUSATE SODIUM 100 MG CAP PO SCH ×2 (08:23→21:36)
[2020-01-18] MEDS: DULoxetine 20 MG CAP (CYMBALTA) PO SCH (08:23)
[2020-01-19] MEDS: DULoxetine 20 MG CAP (CYMBALTA) PO SCH (08:54)
[2020-01-19] MEDS: MULTIVITAMINS/MINERALS THERAP 1 TAB PO SCH (08:54)
[2020-01-19] MEDS: TOPIRAMATE (TopAMAX) 25 MG TAB PO SCH (08:54)
[2020-01-19] MEDS: DOCUSATE SODIUM 100 MG CAP PO SCH (08:54)
[2020-01-19] MEDS ORDERED: PANTOPRAZOLE 40MG TAB (PROTONIX) PO SCH (09:00)
--- NOTE | 2020-01-19 10:51 | DS.PDOC ---
Discharge Summary General Date of Admission Jan 16, 2020 at 17:28 Date of Discharge 01/19/2020 Attending Physician: VICK HINES MD Discharge Summary PROCEDURES PERFORMED DURING STAY: None ADMITTING DIAGNOSES: 1. Acute blood loss anemia in setting of rectal bleeding 2. [place] Disease 3. Hypotension DISCHARGE DIAGNOSES: 1. Acute blood loss anemia in setting of rectal bleeding 2. [place] Disease 3. Hypotension 4. Protein calorie malnutrition COMPLICATIONS/CHIEF COMPLAINT: gross lower GI bleeding HISTORY OF PRESENT ILLNESS: 84 yo F with a hx of CVA, chronic afib, CKD III, Alzheimer's dementia, Vascular dementia, presented to [facility] ED from [facility] due to acute bleeding per rectum. Noted to have Hgb 6.2 this morning, was brought to transfusion center however developed hypotension and was transfered to the ED for acute blood transfusion and monitoring. Patient is DNR/DNI, MOLST forms signed. Spoke to patient's daughter - Funmilayo Trevizo (tel [phone]), wishes only for selective management, and to avoid any invasive diagnostic tests. Wishes to proceed with blood transfusion. Repeat Hgb in ED 6.5. Positive guaic. Cr 1.36. Na 149. Admitted for tranfusion and hg monitoring in setting of acute lower gi bleeding. HOSPITAL COURSE: Patient was actively transfused with 4 units of pRBC, resulting in an increased in Hgb to 10.5. She continued to be monitored, and maintained stable hemoglobin. On 01/17/20, elevation in total bilirubin was noted, along with nicholas urine. Discussed with blood bank and pathologist Dr. Gr that hemolytic transfusion reaction was unlikely given appropriate and expected rise in Hgb after transfusion. Patients INR, PTT, and PT were wnl. She began to have repeat gross blood per rectum with additional blood in urine. Family was contacted and expressed wishes to initiate Comfort Measures Only. INTERNET SALES DIRECTOR orders placed. No further transfusions were given. Vital signs remained stable throughout the remained of the admission without repeat episodes of LGIB. Additional problems were addressed prior to initiation of INTERNET SALES DIRECTOR status, as follows: Afib: no AC. Home meds coreg 6.25 mg PO BID. Digoxin 0.125 mg M,W,F,Sat,Sun. Serum digoxin lvl 1.1. Hold meds. HTN: amlodipine 10 mg PO daily, Coreg 6.25 mg PO BID, losartan 50 mg PO BID. BP meds held due to hypotension Migraines: on topiramate 50 mg PO BID. CVA: on ASA 81 mg daily. Hold due to LGIB. Hypernatremia: D51/2NS at 100 cc/hr. Repeat CMp in AM. 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 DISCHARGE MEDICATIONS: Please see below. ALLERGIES: Please see below. PHYSICAL EXAMINATION ON DISCHARGE: VITAL SIGNS: Please see below. GENERAL: NAD, confused HEENT: PERRLA, EOMI CARDIOVASCULAR: RRR, normal S1, S2, BP wnl. RESPIRATORY: lungs CTAB. ABDOMINAL: soft, non tender EXTREMITIES: no edema, no joint deformity NEUROLOGICAL: unable to complete PSYCHOLOGICAL: AAO x 0 LABORATORY DATA: Please see below. IMAGING: CXR (01/16/20) IMPRESSION: 1. Cardiomegaly. 2. No acute infiltrates. PROGNOSIS: poor, comfort measures ACTIVITY: As tolerated. DIET: regular, mech altered level 1 DISCHARGE PLAN: INTERNET SALES DIRECTOR status, return to [facility] DISPOSITION: [facility]. DISCHARGE INSTRUCTIONS: 1. Please continue comfort measures 2. Medications for comfort continued on discharge. 3. If progression of symptoms, worsening pain, n/v, please consider hospice referral ITEMS TO FOLLOWUP ON ON OUTPATIENT: 1. None DISCHARGE CONDITION: [Stable]. TIME SPENT ON DISCHARGE: Greater than [30] minutes. Vital Signs/I&Os Vital Signs Date Time Temp Pulse Resp B/P (MAP) Pulse Ox O2 Delivery O2 Flow Rate FiO2 01/17/20 16:00 99.0 87 16 144/88 (106) 98 Room Air I&O- Last 24 Hours up to 6 AM 01/19/20 06:00 Intake Total 950 ml Output Total 0 ml Balance 950 ml Laboratory Data Labs 24H Laboratory Tests 2 01/18/20 11:26: Lab Scanned Report Transfusion Record Discharge Medications Scheduled Docusate Sodium (Docusate Sodium) 100 Mg Capsule, 100 MG PO BID Scheduled PRN Acetaminophen (Acetaminophen) 325 Mg Tablet, 650 MG PO Q4H PRN for PAIN / FEVER, (Reported) Bisacodyl (Bisacodyl) 10 Mg Supp.rect, 10 MG [place] DAILY PRN for CONSTIPATION, (Reported) Loperamide HCl (Anti-Diarrheal) 2 Mg Capsule, 2 MG PO Q4H PRN for DIARRHEA, (Reported) Lorazepam (Ativan) 2 Mg/1 Ml Vial, 1 MG IV Q2HP PRN for ANXIETY Milk Of Magnesia (Milk of Magnesia) 2,400 Mg/10 Ml Oral.susp, 10 ML PO DAILY PRN for CONSTIPATION, (Reported) Morphine Sulfate (Morphine Sulfate) 2 Mg/1 Ml Vial, 2 MG IV Q2H PRN for SEVERE PAIN (PS 8-10) Ondansetron HCl/Pf (Ondansetron HCl 4 mg/2 ml Vial) 4 Mg/2 Ml Vial, 4 MG IV Q6HP PRN for NAUSEA OR VOMITING Scopolamine (Transderm-Scop) 1 Each Patch.td.3, 1 MG TOP Q3DP PRN for EXCESSIVE SECRETIONS Sodium Phosphate,[place]-Dibasic (Fleet Enema) 133 Ml Enema, 1 MYLES [place] DAILY PRN for CONSTIPATION, (Reported) Allergies Coded Allergies: No Known Allergies (Verified Allergy, Unknown, 07/19/19) VICK HINES MD Jan 19, 2020 10:51
[2020-01-19] MEDS ORDERED: MORP2INJ4 IV (11:05)
[2020-01-19] MEDS ORDERED: SCOP1PAT2 TOP (11:05)
[2020-01-19] MEDS ORDERED: ATIV2INJ5 IV (11:05)
[2020-01-19] MEDS ORDERED: DOCU100C16 PO (11:05)
[2020-01-19] MEDS ORDERED: ONDA4INJ4 IV (11:05)
--- NOTE | 2020-01-29 09:05 | ECGEPIP ---
[facility] - ED Test Date: 2020-01-16 Pat Name: FRITZ LAINEZ Department: Room: 05-17 Gender: Female Supervisor Pigment Making: ANA : 1935 Requested By: María Shultz Order Number: [id number] Reading MD: Christina Faith Measurements Intervals [place] Rate: 85 P: [place]: 0 QRS: -22 QRSD: 144 T: 163 QT: 401 QTc: 478 Interpretive Statements ATRIAL FIBRILLATION LEFT BUNDLE BRANCH BLOCK ABNORMAL ECG SEE SCANNED DOWNTIME REPORT
--- NOTE | 2020-02-06 12:21 | ECGEPIP ---
[facility] Test Date: 2020-01-17 Pat Name: FRITZ LAINEZ Department: Room: [place] [address] Gender: Female Behavioral Health Care Manager: JOSEPHINE : 1935 Requested By: VICK HINES Order Number: [id number] Reading MD: Adam Nichols Measurements Intervals [place] Rate: 86 P: [place]: 0 QRS: -18 QRSD: 148 T: 151 QT: 404 QTc: 483 Interpretive Statements ATRIAL FIBRILLATION LEFT BUNDLE BRANCH BLOCK ABNORMAL ECG SEE SCANNED DOWNTIME REPORT
== END 2020-01-19 11:45 | DRG 378 ==
LOC: M ED 16:11 → M ED INP 17:28 → ENRESERV 18:14 → M PCU 18:56 → M MS5PR 01-17 21:29
PROVIDERS: ADMIT Family Medicine; ATTEND Family Medicine
PROC: 30233N1 Transfusion of Nonautologous Red Blood Cells into Peripheral Vein, Percutaneous Approach (ICD-10-PCS; principal; 2020-01-16)
DX: K62.5 Hemorrhage of anus and rectum (principal); G61.0 Guillain-Barre syndrome; E46 Unspecified protein-calorie malnutrition; E87.0 Hyperosmolality and hypernatremia; E85.4 Organ-limited amyloidosis; I48.20 Chronic atrial fibrillation, unspecified; D62 Acute posthemorrhagic anemia; I95.9 Hypotension, unspecified; F01.50 Vascular dementia, unspecified severity, without behavioral disturbance, psychotic disturbance, mood disturbance, and anxiety; G30.9 Alzheimer's disease, unspecified; R13.10 Dysphagia, unspecified; F02.80 Dementia in other diseases classified elsewhere, unspecified severity, without behavioral disturbance, psychotic disturbance, mood disturbance, and anxiety; N18.3 Chronic kidney disease, stage 3 (moderate); I12.9 Hypertensive chronic kidney disease with stage 1 through stage 4 chronic kidney disease, or unspecified chronic kidney disease; E80.4 Gilbert syndrome; I68.0 Cerebral amyloid angiopathy; Z51.5 Encounter for palliative care; Z66 Do not resuscitate; G43.709 Chronic migraine without aura, not intractable, without status migrainosus; Z86.73 Personal history of transient ischemic attack (TIA), and cerebral infarction without residual deficits; Z79.82 Long term (current) use of aspirin; Z79.899 Other long term (current) drug therapy

== ENCOUNTER → 2020-01-16 | Outpatient (REF) | payer MEDICARE ==
[2020-01-16 14:32] LABS: MEAN CORPUSCULAR HEMOGLOBIN 33.5 pg (27.0-33.0); MEAN CORPUSCULAR VOLUME 104.9 fl (80.0-96.0); PLATELET COUNT, AUTOMATED 120 10^3/uL (150-450); RED BLOOD COUNT 1.85 10^6/uL (4.00-5.40); WHITE BLOOD COUNT 8.5 10^3/uL (4.0-10.0)
[2020-01-16 14:38] LABS: HEMATOCRIT 19.4 % (36.0-47.0)
[2020-01-16 14:43] LABS: HEMOGLOBIN 6.2 g/dl (12.0-15.5)
== END ==
LOC: SKLAB2 12:42
PROVIDERS: ATTEND Internal Medicine
DX: K92.2 Gastrointestinal hemorrhage, unspecified (principal)

== ENCOUNTER → 2020-01-16 | Outpatient (REF) | payer MEDICARE ==
[2020-01-16 11:14] LABS: CALCIUM LEVEL 7.9 MG/DL (8.8-10.2); CREATININE FOR GFR 1.54 MG/DL (0.55-1.30); GLOMERULAR FILTRATION RATE 34.2 (>32); POTASSIUM SERUM 4.4 MEQ/L (3.5-5.1)
== END ==
LOC: SKLAB2 04:30
PROVIDERS: ATTEND Internal Medicine
DX: K92.2 Gastrointestinal hemorrhage, unspecified (principal)

== ENCOUNTER → 2020-01-16 | Outpatient (REF) | payer MEDICARE | LOC: SKLAB2 04:30 | PROVIDERS: ATTEND Internal Medicine | DX: R19.5 Other fecal abnormalities (principal) ==